=== PATIENT | male | born 2000 | race Two or more races ===

== ENCOUNTER 2024-01-24 10:50 | Outpatient (AMB) | payer OTHER, SELFPAY ==
--- NOTE | 2024-01-24 10:53 | A.OFFPC_ITS ---
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 Patient reports he has no concerns at this time. 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 Accompanied by: Self / Same As Patient Allergies No Known Allergies [No Known Allergies*] Allergy (Verified 01/24/24 11:05) Medication List - Last Reconciled 01/24/24 by ART Hamm No Known Home Meds Tobacco use date assessed: 01/24/24 HPI HPI Comments History of Present Illness Details 23-year-old male with MDD, Gender Identi ty disorder Surgical history: appendectomy 2023 Reports no sig family hx Health Maintenance: Dentist- needs info > given today Eyes - denies any issues Declines vaccines today as he is not sure if he got them in [place] Specialists: None Here today new patient for a CPE Wants to transition from Male and Female; states moved here from [place] 3 months ago. Was not able to have this done in [place] as they have an age restriction of 21. [facility] Medical History (Updated 01/24/24 @ 11:32 by ART Hamm) Appendicitis Surgical History (Updated 01/24/24 @ 11:06 by Adrianna Meyer CMA) History of appendectomy Family History (Updated 01/24/24 @ 11:09 by Adrianna Meyer CMA) Maternal Grandmother Diabetes Hypertension Social History (Updated 01/24/24 @ 11:05 by Adrianna Meyer CMA) Household Members: Family Housing: Apartment Alcohol intake: current Alcohol intake frequency: holidays/special occasions only Patient Tobacco Use Status: Never used Tobacco e-Cigarette/Vaping Use: Never Used Substance Use Type: Marijuana service: No Sexual orientation: Unable to collect Gender identity: Unable to collect Cognitive needs: No Hearing needs: No Vision needs: No Questionnaire PHQ-9 Over the last 2 weeks, how often have you been bothered by any of the following problems? 1. Little interest or pleasure in doing things: not at all 2. Feeling down, depressed, or hopeless: not at all 3. Trouble falling or staying asleep, or sleeping too much: not at all 4. Feeling tired or having little energy: not at all 5. Poor appetite or overeating: not at all 6. Feeling bad about yourself - or that you are a failure or have let yourself or your family down: not at all 7. Trouble concentrating on things, such as reading the newspaper or watching television: not at all 8. Moving or speaking so slowly that other people could have noticed. Or the opposite - being so fidgety or restless that you have been moving around a lot more than usual: not at all 9. Thoughts that you would be better off or of hurting yourself in some way: not at all Total score: 0 Depression Screening Interpretation: Negative Depression Screening Done: Yes 20670 - PHQ-9 Billing: Yes Source: Developed by Drs. Raghu Doyle, Kimberly Pacheco, Kei Castellanos and colleagues, with an educational yanet from [employer]. Thrive Questionnaire Date Thrive assessed: 01/24/24 I am a: Patient What is your living situation today?: I have a steady place to live Within the past 12 months, did the food you bought not last and you didn't have the money to get more?: Never true Within the past 12 months, did you worry whether your food would run out before you got money to buy more?: Never true Do you have trouble paying for medicines?: No Do you have trouble getting transportation to medical appointments?: No Do you have trouble paying your heating and electricity bill?: No Do you have trouble taking care of your child, family member or friend?: No Do you have trouble with day-to-day activities such as bathing, preparing meals, shopping, managing finances, etc.?: No Are you currently unemployed and looking for a job?: No Are you interested in more education?: No Please select the resources that you would like help with: None Currently or been in a relationship where the following occur: no concerns reported THRIVE Score: 0 AUDIT C Alcohol Use Questionnaire (AUDIT-C) 1. How often do you have a drink containing alcohol?: Monthly or less 2. How many drinks containing alcohol do you have on a typical day when you are drinking?: 1 or 2 3. How often do you have six or more drinks on one occasion?: Never Total Score: 1 Score Reviewed/Action Taken: Yes MANFRED-7 AMB Questionnaire MANFRED-7 Date MANFRED - 7 assessed: 01/24/24 Feeling nervous, anxious, or on edge: 0 = Not at all Not being able to stop or control worryin = Not at all Worrying too much about different things: 0 = Not at all Trouble relaxin = Not at all Being so restless that it is hard to sit still: 0 = Not at all Becoming easily annoyed or irritable: 0 = Not at all Feeling afraid as if something awful might happen: 0 = Not at all Total MANFRED-7 score (0-4 normal; 5-9 mild; 10-14 moderate; 15-21 severe): 0 Source: Developed by Drs. Rgahu Doyle, Kimberly Pacheco, Kei Castellanos and colleagues, with an educational yanet from [employer]. MANFRED-7 Assessment Billing MANFRED-7 Assessment Tool: MANFRED-7 Assessment 89001 Review of Systems Const Details: Constitutional: Denies fever. Skin: Denies rash. Eye: Denies eye pain. ENMT: Denies sore throat and nasal congestion. Respiratory: Denies shortness of breath and cough. Gastrointestinal: Denies nausea, vomiting or abdominal pain. Cardiovascular: Denies chest pain and syncope. Genitourinary: Denies dysuria. Musculoskeletal: Denies back pain and extremity pain. Neurologic: Denies headaches, confusion, and weakness. Psychiatric: Denies suicidal thoughts and substance abuse. Allergy/ Immunologic: Denies impaired immunity. Physical exam (Primary Care) Vital Signs: Last Vital Signs Temp 99.3 F 01/24/24 10:57 Pulse 69 01/24/24 10:57 Resp 13 01/24/24 10:57 BP 122/67 01/24/24 10:57 Pulse Ox 98 01/24/24 10:57 Oxygen Delivery Method Room Air 01/24/24 10:57 BMI result Body Mass Index 24.7 Tobacco/Smoking Status: Tobacco use Status Tobacco use date assessed 01/24/24 01/24/24 11:05 Patient Tobacco Use Status Never used Tobacco 01/24/24 11:05 e-Cigarette/Vaping Use Never Used 01/24/24 11:05 PHQ-9: PHQ-9 Score PHQ-9: Total score 0 01/24/24 11:07 Depression Screening Interpretation: Negative Thrive Assessment: Date of Thrive Assessment Date Thrive assessed 01/24/24 01/24/24 11:07 Currently or been in a relationship where the following occur: no concerns reported Advance Care Planning discussion: Exists, not on file Date of discussion: 01/24/24 Who was present: self Forms completed: Health Care Proxy Const Other: General: Well developed, well nourished, in no acute distress. Appears stated age. Head: Normocephalic, atraumatic. Eyes: Pupils are equal, round and reactive to light and accommodation. Conjunctivae are clear. Vision grossly normal. Ears: TMs clear AU, EACS WNL Nose: Patent, without discharge. Mouth: There are no ulcers or lesions noted. No inflammation, no post nasal drip, no plaques nor exudates. Neck: Supple, no adenopathy or thyromegaly. Lungs: Clear to auscultation bilaterally. No rales, rhonchi or wheeze noted. Good air flow in all mancini. Heart: Regular rate and rhythm. No murmurs, click, rubs or gallops are noted. Abdomen: Bowel sounds present in all quadrants. The abdomen is soft, nontender, with no masses or organomegaly noted. No hernias are noted. Musculoskeletal: Joints are nontender, without swelling, redness, or effusions. Range of motion is observed to be normal. Pulses: Peripheral pulses are equal and palpable bilaterally. Extremities: No clubbing, cyanosis nor edema is noted. Neurologic: Gait and station normal. Cranial Nerves 2-12 intact. Motor strength grossly symmetrical and intact. No sensory loss. Balance normal. Skin: No rashes, ulcers, or lesions noted. Turgor is good. Skin color is good. Hair and nails are without abnormalities. Psych: Normal eye contact, affect and mood appropriate, and normal interactions. Patient is alert and appropriate to context. Assessment and Plan Assessment & Plan (1) Routine physical examination: Code(s): Z00.00 - Encounter for general adult medical examination without abnormal findings (2) MDD (major depressive disorder), recurrent episode: Comment: in remission, PHQ 0. Not on meds Referred to counseling Code(s): F33.9 - Major depressive disorder, recurrent, unspecified Qualifiers: Major depression episode severity: mild Qualified Code(s): F33.0 - Major depressive disorder, recurrent, mild (3) Laboratory exam ordered as part of routine general medical examination: Code(s): Z00.00 - Encounter for general adult medical examination without abnormal findings (4) Gender identity disorder, unspecified: Comment: Wishes to undergo transition from male to female. Referred to counseling. Referral to Psychiatry from there if appropriate. Then referral to endocrinology or the like to help with this. Code(s): F64.9 - Gender identity disorder, unspecified Orders: Orders Lipid Panel Today Z00.00 - Encounter for general adult medical examination without abnormal findings Vitamin D 1,25 dihydroxy Today Z00.00 - Encounter for general adult medical examination without abnormal findings Hemoglobin A1c Today Z00.00 - Encounter for general adult medical examination without abnormal findings Microalbumin, Random (w Creat) Today Z00.00 - Encounter for general adult medical examination without abnormal findings TSH reflex Free T4 Today Z00.00 - Encounter for general adult medical examination without abnormal findings Referrals Counseling Referral F33.9 - Major depressive disorder, recurrent, unspecified, F64.9 - Gender identity disorder, unspecified Patient Instructions: RTO 1 year for CPE, sooner as needed Health screenings for men You should visit your health care provider regularly, even if you feel healthy. The purpose of these visits is to: Screen for medical issues Assess your risk for future medical problems Encourage a healthy lifestyle Update vaccinations and other preventive care services Help you get to know your provider in case of an illness Information Even if you feel fine, you should still see your provider for regular checkups. These visits can help you avoid problems in the future. For example, the only way to find out if you have high blood pressure is to have it checked regularly. High blood sugar and high cholesterol level also may not have any symptoms in the early stages. Simple blood tests can check for these conditions. There are specific times when you should see your provider or receive specific health screenings. The [place] Preventive Services Task Force publishes a list of recommended screenings. Below are screening guidelines for men ages 40 to 64. BLOOD PRESSURE SCREENING Have your blood pressure checked at least once every year. Watch for blood pressure screenings in your area. Ask your provider if you can stop in to have your blood pressure checked. Ask your provider if you need your blood pressure checked more often if: You have diabetes, heart disease, kidney problems, or are overweight or have certain other health conditions You have a first-degree relative with high blood pressure You are Black Your blood pressure top number is from 120 to 129 mm Hg, or the bottom number is from 70 to 79 mm Hg If the top number is 130 mm Hg or greater or the bottom number is 80 mm Hg or greater, this is considered stage 1 hypertension. Schedule an appointment with your provider to learn how you can lower your blood pressure. Effects of age on blood pressure CHOLESTEROL SCREENING Cholesterol screening should begin at age 35 for men with no known risk factors for coronary heart disease. Repeat cholesterol screening should take place: Every 5 years for men with normal cholesterol levels More often if changes occur in lifestyle (including weight gain and diet) More often if you have diabetes, heart disease, kidney problems, or certain other conditions COLORECTAL CANCER SCREENING If you are under age 45, talk to your provider about getting screened. You may need to be screened if you have a strong family history of colon cancer or polyps. Screening may also be considered if you have risk factors such as a history of inflammatory bowel disease or polyps. If you are age 45 to 75, you should be screened for colorectal cancer. There are several screening tests available: A stool-based fecal occult blood (gFOBT) or fecal immunochemical test (FIT) every year A stool sDNA test every 1 to 3 years Flexible sigmoidoscopy every 5 years or every 10 years with stool testing FIT done every year CT colonography (virtual colonoscopy) every 5 years Colonoscopy every 10 years You may need a colonoscopy more often if you have risk factors for colorectal cancer, such as: Ulcerative colitis A personal or family history of colorectal cancer A history of growths in your colon called adenomatous polyps DENTAL EXAM Go to the dentist once or twice every year for an exam and cleaning. Your dentist will evaluate if you have a need for more frequent visits. DIABETES SCREENING All adults who do not have risk factors for diabetes should be screened starting at age 35 and repeated every 3 years. If you have other risk factors for diabetes, such as a first degree relative with diabetes, overweight or obesity, high blood pressure, prediabetes, or a history of heart disease, you may be tested more often. If you are overweight and have other risk factors, such as high blood pressure and are planning to become , screening is recommended. EYE EXAM Have an eye exam every 2 to 4 years ages 40 to 54 and every 1 to 3 years ages 55 to 64. Your provider may recommend more frequent eye exams if you have vision problems or glaucoma risk. Have an eye exam that includes an examination of your retina (back of your eye) at least every year if you have diabetes. IMMUNIZATIONS Commonly needed vaccines include: Flu shot: get one every year COVID-19 vaccine: ask your provider what is best for you Tetanus-diphtheria and acellular pertussis (Tdap) vaccine: have as one of your tetanus-diphtheria vaccines if you did not receive it as an adolescent Tetanus-diphtheria: have a booster (or Tdap) every 10 years Varicella vaccine: receive 2 doses if you never had chickenpox or the varicella vaccine and were born in 1979 or after Hepatitis B vaccine: receive 2, 3, or 4 doses, depending on your exact circumstances, if you did not receive these as a child or adolescent, until age 59 Shingles (herpes zoster) vaccine: at or after age 50 Ask your provider if you should receive other immunizations, especially if you have certain medical conditions, such as diabetes or are at increased risk for some diseases such as pneumonia. INFECTIOUS DISEASE SCREENING Screening for hepatitis C: all adults ages 18 to 79 should get a one-time test for hepatitis C. Screening for human immunodeficiency virus (HIV): all people ages 15 to 65 should get a one-time test for HIV. Depending on your lifestyle and medical history, you may need to be screened for infections such as syphilis, chlamydia, and other infections. LUNG CANCER SCREENING You should have an annual screening for lung cancer with low-dose computed tomography (LDCT) if: You are age 50 to 80 years AND You have a 20 pack-year smoking history AND You currently smoke or have quit within the past 15 years OSTEOPOROSIS SCREENING If you are age 50 to 64 and have risk factors for osteoporosis, you should discuss screening with your provider. Risk factors can include long-term steroid use, low body weight, smoking, heavy alcohol use, having a fracture after age 50, or a family history of hip fracture or osteoporosis. Osteoporosis PHYSICAL EXAM All adults should visit their provider from time to time, even if they are healthy. The purpose of these visits is to: Screen for diseases Assess risk of future medical problems Encourage a healthy lifestyle Update vaccinations and other preventive care services Maintain a relationship with a provider in case of an illness Your height, weight, and body mass index (BMI) should be checked at every exam. During your exam, your provider may ask you about: Depression and anxiety Diet and exercise Alcohol and tobacco use Safety, such as use of seat belts and smoke detectors Your medicines and risk for interactions PROSTATE CANCER SCREENING If you're 55 through 69 years old, before having the test, talk to your provider about the pros and cons of having a PSA test. Ask about: Whether screening decreases your chance of dying from prostate cancer. Whether there is any harm from prostate cancer screening, such as side effects from testing or overtreatment of cancer when discovered. Whether you have a higher risk of prostate cancer than others. If you are age 55 or younger, screening is not generally recommended. You should talk with your provider about if you have a higher risk for prostate cancer. Risk factors include: Having a family history of prostate cancer (especially a brother or father) Being If you choose to be tested, the PSA blood test is repeated over time (yearly or less often), though the best frequency is not known. Prostate examinations are no longer routinely done on men with no symptoms. Prostate cancer SKIN EXAM Your provider may check your skin for signs of skin cancer, especially if you're at high risk. People at high risk include those who have had skin cancer before, have close relatives with skin cancer, or have a weakened immune system. TESTICULAR EXAM The [place] Preventive Services Task Force (USPSTF) now recommends against performing testicular self-exams. Doing testicular self-exams has been shown to have little to no benefit. Review Flu Vaccine not done: patient reason Declined TDap/Td: 01/24/24 Coding Level of Care Code Est Pt Prev Care 18-39y(28953) Diagnoses Routine physical examination Z00.00 Mild episode of recurrent major depressive disorder F33.0 Major depression episode severity: mild Laboratory exam ordered as part of routine general medical examination Z00.00 Gender identity disorder, unspecified F64.9 Additional Codes MANFRED-7 Assessment Billing - MANFRED-7 Assessment Tool: MANFRED-7 Assessment 24117 ([id number]) Vital Signs *Quality* - Advance Care Planning discussion: Exists, not on file ([id number])
[2024-01-24 10:57] VITALS: BP 122/67; PULSE 69; RESP 13; TEMP 37.4; O2SAT 98; BMI 24.7
== END 2024-01-24 11:42 | disposition home or self-care (01) ==
PROVIDERS: PCP Nurse Practitioner Family; Visit Provider Nurse Practitioner Family
DX: Z00.00 Encounter for general adult medical examination without abnormal findings (principal); F33.0 Major depressive disorder, recurrent, mild; F64.9 Gender identity disorder, unspecified
CPT/HCPCS: 1123F; 99395

== ENCOUNTER 2024-01-24 11:30 | Outpatient (REF) | payer OTHER, SELFPAY ==
[2024-01-24 14:55] LABS: Estimated Average Glucose 111 mg/dL; Hemoglobin A1c % 5.5 % (<6.0)
[2024-01-24 15:15] LABS: Microalbum/Creatinine Ratio Ur 4.9 ug/mg cr (<30)
[2024-01-24 17:34] LABS: Cholesterol 168 mg/dL (<200); HDL Cholesterol 39 mg/dL (>40); LDL Cholesterol Calculated 116 mg/dL (<100); Triglycerides 68 mg/dL (<150)
[2024-01-24 17:36] LABS: TSH reflex Free T4 2.59 uIU/mL (0.32-4.0)
[2024-01-29 09:19] LABS: VITAMIN D (1,25 OH) D3 41 pg/mL; Vit D (1,25-Dihydroxy) Total 41 pg/mL (18-72); Vitamin D (1,25 OH) D2 <8 pg/mL
== END 2024-01-24 11:31 | disposition home or self-care (01) ==
LOC: HO.WFDLDS 11:30
PROVIDERS: Visit Provider Nurse Practitioner Family
DX: Z00.00 Encounter for general adult medical examination without abnormal findings (principal)
CPT/HCPCS: 36415; 80061; 82043; 82570; 82652; 83036; 84443

== ENCOUNTER 2024-08-26 09:01 | Outpatient (REF) | payer OTHER, SELFPAY ==
--- NOTE | ~2024-08-26 | XR_ITS ---
EXAMINATION: XR ABDOMEN KUB CLINICAL INDICATION: Left lower quadrant pain. COMPARISON: None available. TECHNIQUE: AP view of the abdomen. FINDINGS: Nonobstructive bowel gas pattern. Moderate degree of colonic stool burden. No acute osseous findings. Visualized lung bases are clear. XR/XR KUB IMPRESSION: Nonobstructive bowel gas pattern. Moderate colonic stool burden. Electronically signed by: Anushka Low MD 08/26/2024 03:33 PM EST
[2024-08-26 13:05] LABS: Appearance Urine Turbid; Color Urine Dark Yellow; Glucose Urine UA Negative (Negative); Leukocyte Esterase Urine Negative (Negative); Nitrite Urine Negative (Negative); PH 5.5 (5.0-9.0); Specific Gravity - Urine 1.025 (1.005-1.025); Urine Blood Negative (Negative); Urine Ketones Trace mg/dL (Negative); Urine Protein Negative (Neg-Trace)
[2024-08-26 13:41] LABS: Alanine Aminotransferase 24 U/L (0-40); Albumin Level 4.8 g/dL (3.5-5.0); Alkaline Phosphatase 66 U/L (39-117); Aspartate Amino Transferase 27 U/L (5-37); Bilirubin Direct 0.2 mg/dL (0.0-0.5); Bilirubin Total 0.7 mg/dL (0.0-1.0); Total Protein 7.9 g/dL (6.5-8.0)
[2024-08-26 14:58] LABS: Monotest Negative (Negative)
[2024-08-27 08:22] LABS: Syphilis Screen Nonreactive (Nonreactive)
[2024-08-27 08:39] LABS: HIV AB/AG Nonreactive (Nonreactive); HIV Num 1 0.06 S/CO (0.00-0.99)
[2024-08-27 11:02] LABS: Herpes Simplex Type 2 IgG <0.90 index
== END 2024-08-26 09:02 | disposition home or self-care (01) ==
LOC: HO.HMGCX 09:01
PROVIDERS: PCP Nurse Practitioner Family; Visit Provider Nurse Practitioner Family
DX: R10.32 Left lower quadrant pain (principal); Z20.2 Contact with and (suspected) exposure to infections with a predominantly sexual mode of transmission; Z90.49 Acquired absence of other specified parts of digestive tract
CPT/HCPCS: 36415; 74018; 80076; 81003; 86308; 86695; 86696; 86780; 87389; 96127; 99212

== ENCOUNTER 2024-08-26 09:01 | Outpatient (AMB) | payer OTHER, SELFPAY ==
--- NOTE | 2024-08-26 09:05 | MHC.PC.OV ---
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 Required: No Allergies No Known Allergies [No Known Allergies*] Allergy (Verified 08/26/24 09:13) Medication List - Last Reconciled 08/26/24 by ART Hamm No Known Home Meds Tobacco use date assessed: 01/24/24 HPI HPI Comments History of Present Illness Details 24-year-old male with MDD, Gender Identity disorder (Wants to transition from Male and Female) Surgical history: appendectomy 2023 Reports no sig family hx Health Maintenance: Dentist- needs info > given today Eyes - denies any issues Declines vaccines today as he is not sure if he got them in [place] Specialists: None Here today with a couple concerns: Has chronic pain in LLQ s/p appendectomy, reports this has not improved since surgery. Pain is only present in the AM 5am-12pm. States can eat normally after this period Does not eat during this period as reports pain gets worse Moving bowels helps the pain Normal urination No vomiting Tried laxative w/o relief. Denies fever, chills, blood stools. Exposed to STDs. MSM. Would like STD testing. Denies active sx. Diet - states he was told to follow a specific diet s/p appendectomy but lost the directions. He also struggles w his weight. Wants to stay thin. Reports obesity in the past. Plan KUB and labs STD screening Clinical Pharmacy Coordinator referral I will fu with him once results are available. May require GI referral. No results as of close of note. This note is constructed using voice recognition software. While every effort has been made to ensure accuracy in fitness coach, still errors may have been included Sometimes, these errors may affect the content or meaning of the given sentence . Total time spent caring for the patient today was 30 minutes. This includes time spent before the visit reviewing the chart, time spent during the visit, and time spent after the visit on documentation [facility] Medical History (Updated 08/26/24 @ 09:27 by ART Hamm) Appendicitis Surgical History (Updated 08/26/24 @ 09:17 by Sherly Malone [facility]) History of appendectomy Family History (Updated 01/24/24 @ 11:09 by Adrianna Meyer [facility]) Maternal Grandmother Diabetes Hypertension Social History (Updated 01/24/24 @ 11:05 by Adrianna Meyer [facility]) Household Members: Family Housing: Apartment 75 years or older and lives alone: No Alcohol intake: current Alcohol intake frequency: holidays/special occasions only Patient Tobacco Use Status: Never used Tobacco e-Cigarette/Vaping Use: Never Used Substance Use Type: Marijuana service: No Sexual orientation: Unable to collect Gender identity: Unable to collect Cognitive needs: No Hearing needs: No Vision needs: No Questionnaire PHQ-9 Over the last 2 weeks, how often have you been bothered by any of the following problems? 1. Little interest or pleasure in doing things: not at all 2. Feeling down, depressed, or hopeless: not at all 3. Trouble falling or staying asleep, or sleeping too much: not at all 4. Feeling tired or having little energy: not at all 5. Poor appetite or overeating: not at all 6. Feeling bad about yourself - or that you are a failure or have let yourself or your family down: not at all 7. Trouble concentrating on things, such as reading the newspaper or watching television: not at all 8. Moving or speaking so slowly that other people could have noticed. Or the opposite - being so fidgety or restless that you have been moving around a lot more than usual: not at all 9. Thoughts that you would be better off or of hurting yourself in some way: not at all Total score: 0 09316 - PHQ-9 Billing: Yes Source: Developed by Drs. Raghu Doyle, Kimberly Pacheco, Kei Castellanos and colleagues, with an educational yanet from [employer]. Thrive Questionnaire Date Thrive assessed: 08/26/24 I am a: Patient What is your living situation today?: I have a steady place to live Within the past 12 months, did the food you bought not last and you didn't have the money to get more?: Never true Within the past 12 months, did you worry whether your food would run out before you got money to buy more?: Never true Do you have trouble paying for medicines?: No Do you have trouble getting transportation to medical appointments?: I choose not to answer this question Do you have trouble paying your heating and electricity bill?: No Do you have trouble taking care of your child, family member or friend?: No Do you have trouble with day-to-day activities such as bathing, preparing meals, shopping, managing finances, etc.?: No Are you currently unemployed and looking for a job?: No Are you interested in more education?: No Please select the resources that you would like help with: None Currently or been in a relationship where the following occur: No concerns reported THRIVE Score: 0 AUDIT C Alcohol Use Questionnaire (AUDIT-C) 1. How often do you have a drink containing alcohol?: Monthly or less 2. How many drinks containing alcohol do you have on a typical day when you are drinking?: 5 or 6 3. How often do you have six or more drinks on one occasion?: Less than monthly Total Score: 4 MANFRED-7 AMB Questionnaire MANFRED-7 Date MANFRED - 7 assessed: 08/26/24 Feeling nervous, anxious, or on edge: 0 = Not at all Not being able to stop or control worryin = Not at all Worrying too much about different things: 0 = Not at all Trouble relaxin = Several days Being so restless that it is hard to sit still: 0 = Not at all Becoming easily annoyed or irritable: 0 = Not at all Feeling afraid as if something awful might happen: 0 = Not at all Total MANFRED-7 score (0-4 normal; 5-9 mild; 10-14 moderate; 15-21 severe): 1 Source: Developed by Drs. Raghu Doyle, Kimberly Pacheco, Kei Castellanos and colleagues, with an educational yanet from [employer]. MANFRED-7 Assessment Billing MANFRED-7 Assessment Tool: MANFRED-7 Assessment 71382 Physical exam (Primary Care) Vital Signs: Last Vital Signs Pulse 66 08/26/24 09:07 Resp 13 08/26/24 09:07 BP 125/67 08/26/24 09:07 Pulse Ox 100 08/26/24 09:07 Oxygen Delivery Method Room Air 08/26/24 09:07 BMI result Body Mass Index 23.1 Tobacco/Smoking Status: Tobacco use Status Tobacco use date assessed 01/24/24 08/26/24 09:09 Patient Tobacco Use Status Never used Tobacco 08/26/24 09:09 e-Cigarette/Vaping Use Never Used 08/26/24 09:09 PHQ-9: PHQ-9 Score PHQ-9: Total score 0 08/26/24 09:14 Thrive Assessment: Date of Thrive Assessment Date Thrive assessed 08/26/24 08/26/24 09:09 Currently or been in a relationship where the following occur: No concerns reported Coding Level of Care Code Est Pt Level 4 (77581) Complex EM visit Add On G2211 Diagnoses LLQ abdominal pain R10.32 History of appendectomy Z90.49 Exposure to STD Z20.2 Dietary counseling Z71.3 Additional Codes MANFRED-7 Assessment Billing - MANFRED-7 Assessment Tool: MANFRED-7 Assessment 45706 ([id number]) PHQ-9 - 85838 - PHQ-9 Billing: Yes ([id number]) Assessment & Plan Assessment & Plan (1) LLQ abdominal pain: Code(s): R10.32 - Left lower quadrant pain Category: Medical Plan: . (2) History of appendectomy: Code(s): Z90.49 - Acquired absence of other specified parts of digestive tract Category: Surgical Plan: . (3) Exposure to STD: Code(s): Z20.2 - Contact with and (suspected) exposure to infections with a predominantly sexual mode of transmission Category: Medical Plan: . (4) Dietary counseling: Code(s): Z71.3 - Dietary counseling and surveillance Category: Medical Plan: . Plan . Orders: Orders Liver Panel Today R10.32 - Left lower quadrant pain, Z90.49 - Acquired absence of other specified parts of digestive tract H Pylori Breath Test Today R10.32 - Left lower quadrant pain, Z90.49 - Acquired absence of other specified parts of digestive tract Syphilis Screen Today Z11.3 - Encounter for screening for infections with a predominantly sexual mode of transmission Herpes Simplex Virus Ab IgG Today Z11.3 - Encounter for screening for infections with a predominantly sexual mode of transmission UA CC w/rflx Micro + Cult Today Z11.3 - Encounter for screening for infections with a predominantly sexual mode of transmission XR KUB Today R10.32 - Left lower quadrant pain, Z90.49 - Acquired absence of other specified parts of digestive tract Monotest Today R10.32 - Left lower quadrant pain, Z90.49 - Acquired absence of other specified parts of digestive tract HIV Ab/Ag Today Z11.3 - Encounter for screening for infections with a predominantly sexual mode of transmission Referrals Clinical Pharmacy Coordinator Nutrition Referral R10.32 - Left lower quadrant pain, Z90.49 - Acquired absence of other specified parts of digestive tract
[2024-08-26 09:07] VITALS: BP 125/67; PULSE 66; RESP 13; O2SAT 100; BMI 23.1
== END 2024-08-26 09:23 | disposition home or self-care (01) ==
PROVIDERS: PCP Nurse Practitioner Family; Visit Provider Nurse Practitioner Family
DX: R10.32 Left lower quadrant pain (principal); Z90.49 Acquired absence of other specified parts of digestive tract; Z20.2 Contact with and (suspected) exposure to infections with a predominantly sexual mode of transmission; Z71.3 Dietary counseling and surveillance

== ENCOUNTER 2024-09-10 09:29 | Outpatient (AMB) | payer OTHER, SELFPAY ==
[2024-09-10 09:48] VITALS: BMI 22.9
--- NOTE | 2024-09-10 09:48 | MHC.AMNUTRGE ---
VS Expanded 09/10/24 09:48 09/17/24 13:35 Height 5 ft 7 in 5 ft 7 in Weight 145 lb 15.136 oz 146 lb BMI 22.9 22.9 Intake Visit Reasons: LLQ Pain/VM NOT SET UP Allergies No Known Allergies [No Known Allergies*] Allergy (Verified 08/26/24 09:13) Nutrition Presentation Details: Pt presents for MNT for healthy eating concepts Pt has hx of appendecotmy and c/o chroni LLquadrant pain denies diarrhea/constipation, may have a bowel movement every 2 days , hard stools Meal pattern: reports no meal routine , reports eating out majority of the time fries/burger, soda the majority of the time food frequency fruits: not including, has fruit juices veg:starchy veg mostly (potatoes) dairy: cheese mainly fish:not including starches> 25/day fried foods:daily etoh/smoking-- BS Monitoring Most Recent Diabetes Results: Microalb/Creat Ratio 4.9 ug/mg cr (<30) 01/24/24 Cholesterol 168 mg/dL (<200) 01/24/24 HDL Cholesterol 39 mg/dL (>40) L 01/24/24 Triglycerides 68 mg/dL (<150) 01/24/24 Creatinine 0.84 MG/DL (0.5-1.4) 05/18/19 Blood Urea Nitrogen 4 MG/DL (9-16) L 05/18/19 Sodium 143 MMOL/L (135-145) 05/18/19 Potassium 4.1 MMOL/L (3.3-5.1) 05/18/19 Chloride 106 MMOL/L (96-108) 05/18/19 Calcium 10.0 MG/DL (8.4-10.2) 05/18/19 AST 27 U/L (5-37) 08/26/24 ALT 24 U/L (0-40) 08/26/24 Total Protein 7.9 g/dL (6.5-8.0) 08/26/24 Albumin 4.8 g/dL (3.5-5.0) 08/26/24 WIV-Rimtzrb-Ju.Jeor Equation Height: 5 ft 7 in Weight: 146 lb Resting Metabolic Rate: 1621.97 Calculated Activity Level: Mild Activity Calories Needed to Maintain Weight: 2230.21 Diagnosis Nutrition problem #1: food nutri know defi As related to (etiology) #1: diagnosis As evidenced by (sign/symptom) #1: knowledge deficit of diet [facility] Medical History (Updated 08/28/24 @ 07:10 [facility] Appendicitis Surgical History (Updated 08/26/24 @ 09:17 by ART Hamm) History of appendectomy Family History (Updated 01/24/24 @ 11:09 by Adrianna Meyer [facility]) Maternal Grandmother Diabetes Hypertension Social History (Updated 01/24/24 @ 11:05 by Adrianna Meyer CLINICAL CARE MANAGER) Household Members: Family Housing: Apartment 75 years or older and lives alone: No Alcohol intake: current Alcohol intake frequency: holidays/special occasions only Patient Tobacco Use Status: Never used Tobacco e-Cigarette/Vaping Use: Never Used Substance Use Type: Marijuana service: No Sexual orientation: Unable to collect Gender identity: Unable to collect Cognitive needs: No Hearing needs: No Vision needs: No Assessment & Plan Assessment & Plan (1) Dietary counseling: Code(s): Z71.3 - Dietary counseling and surveillance Category: Medical Plan: Wt: 66.6 Kg ( 09/17/24 ) Est kcal needs as per MSJ: 2100 (40% carb, 30% protein/fat) Est fluid needs as per 25-30 ml/d: 2000 Est prot per day as per 1 g/kg bw: 67 Recommend fiber intake : 8-10 g per day and gradually increase to 25-28 g per day for women and 35-38 g for men or as tolerated Recommend sodium intake per day : less than 2300 mg Educated patient on: ( R = reviewed V = verbalizes understanding N/R = needs review N/A = not applicable Food sources of carbohydrate, adequate serving sizes and its role in various health conditions: R V N/R Differences between complex carbohydrates a simple carbohydrates, role of fiber in diet: R Lean protein sources of foods: R V NR Differences between types of fats and role in diet (mono on saturated fat fatty acids, saturated fatty acids, trans fats): R V N/R Food sources of sodium in salt and healthy modifications for heart health in kidney health: R V R/V Vitamins and minerals: R V N/R Healthy plate method concept: R Physical activity: Benefits a precaution: R V N/R Patient Instructions: Work on reducing fried food consumption Include fiber rich foods in your diet incorporate fruit at least 2 a day (fruit of choice, fresh, canned in its own juice , frozen) Have oatmeal with milk//nuts twice a week as a meal see list of fiber rich foods and meal ideas high in fiber Make sure to drink water with meals /snacks and increase water as you increase in fiber intake Coding Level of Care Code Nutr Indiv Intake (79530) Diagnoses Dietary counseling Z71.3 Time Spent (min) 30
[2024-09-17 13:35] VITALS: BMI 22.9
== END 2024-09-10 10:19 | disposition home or self-care (01) ==
PROVIDERS: PCP Nurse Practitioner Family; Visit Provider Dietitian, Registered
DX: Z71.3 Dietary counseling and surveillance (principal)

== ENCOUNTER → 2024-09-10 09:29 | Outpatient (BNVA) | payer OTHER, SELFPAY | PROVIDERS: PCP Nurse Practitioner Family; Visit Provider Dietitian, Registered | DX: R10.32 Left lower quadrant pain (principal); Z71.3 Dietary counseling and surveillance; Z90.49 Acquired absence of other specified parts of digestive tract | CPT/HCPCS: 97802 ==

== ENCOUNTER 2024-11-05 09:06 | Outpatient (AMB) | payer OTHER, SELFPAY ==
[2024-11-05 09:18] VITALS: BMI 23.9
--- NOTE | 2024-11-05 09:18 | A.OFFVIS_ITS ---
VS Expanded 11/05/24 09:18 Height 5 ft 7 in Weight 152 lb 5.431 oz BMI 23.9 Intake Visit Reasons: appendicitis Allergies No Known Allergies [No Known Allergies*] Allergy (Verified 08/26/24 09:13) Nutrition Presentation Details: Pt presents for MNT f/u Pt reports working on meal planning, including fiber rich foods Pt reports feeling comfortable, no questions or concerns expressed at this time. denies constipation /diarrhea/vomiting food frequency fruits:daily 2-3 servings dairy:choosing fairlife, low lactose food options fiber rich foods: reports including fruits, whole grains, legumes , trying variety of foods Beverages: water , juices, sometimes sodas etoh:denies BS Monitoring Most Recent Diabetes Results: Microalb/Creat Ratio 4.9 ug/mg cr (<30) 01/24/24 Cholesterol 168 mg/dL (<200) 01/24/24 HDL Cholesterol 39 mg/dL (>40) L 01/24/24 Triglycerides 68 mg/dL (<150) 01/24/24 Creatinine 0.84 MG/DL (0.5-1.4) 05/18/19 Blood Urea Nitrogen 4 MG/DL (9-16) L 05/18/19 Sodium 143 MMOL/L (135-145) 05/18/19 Potassium 4.1 MMOL/L (3.3-5.1) 05/18/19 Chloride 106 MMOL/L (96-108) 05/18/19 Calcium 10.0 MG/DL (8.4-10.2) 05/18/19 AST 27 U/L (5-37) 08/26/24 ALT 24 U/L (0-40) 08/26/24 Total Protein 7.9 g/dL (6.5-8.0) 08/26/24 Albumin 4.8 g/dL (3.5-5.0) 08/26/24 [facility] Medical History (Updated 08/28/24 @ 07:10 by ART Hamm) Appendicitis Surgical History (Updated 08/26/24 @ 09:17 by ART Hamm) History of appendectomy Family History (Updated 01/24/24 @ 11:09 by Adrianna Meyer [facility]) Maternal Grandmother Diabetes Hypertension Social History (Updated 01/24/24 @ 11:05 by Adrianna Meyer CMA) Household Members: Family Housing: Apartment 75 years or older and lives alone: No Alcohol intake: current Alcohol intake frequency: holidays/special occasions only Patient Tobacco Use Status: Never used Tobacco e-Cigarette/Vaping Use: Never Used Substance Use Type: Marijuana service: No Sexual orientation: Unable to collect Gender identity: Unable to collect Cognitive needs: No Hearing needs: No Vision needs: No Assessment & Plan Assessment & Plan (1) Dietary counseling: Code(s): Z71.3 - Dietary counseling and surveillance Category: Medical Plan: Wt: 66.6 Kg ( 09/17/24 ), 69 kg (11/09) Est kcal needs as per MSJ: 2100 (40% carb, 30% protein/fat) Est fluid needs as per 25-30 ml/d: 2000 Est prot per day as per 1 g/kg bw: 67 Recommend fiber intake : 8-10 g per day and gradually increase to 25-28 g per day for women and 35-38 g for men or as tolerated Recommend sodium intake per day : less than 2300 mg Educated patient on: ( R = reviewed V = verbalizes understanding N/R = needs review N/A = not applicable * Food sources of carbohydrate, adequate serving sizes and its role in various health conditions: R V N/R * Differences between complex carbohydrates a simple carbohydrates, role of fiber in diet: R * Lean protein sources of foods: R V NR * Differences between types of fats and role in diet (mono on saturated fat fatt y acids, saturated fatty acids, trans fats): R V N/R * Food sources of sodium in salt and healthy modifications for heart health in kidney health: R V R/V * Vitamins and minerals: R V N/R * Healthy plate method concept: R * Physical activity: Benefits a precaution: R V N/R * Patient Instructions: Continue working on choosing low fat food option, Include foods rich in fiber following healthy plate method keep hydrated Coding Level of Care Code Nutr Indiv Subseq (20799) Diagnoses Dietary counseling Z71.3 Time Spent (min) 30
== END 2024-11-05 09:39 | disposition home or self-care (01) ==
PROVIDERS: PCP Nurse Practitioner Family; Visit Provider Dietitian, Registered
DX: Z71.3 Dietary counseling and surveillance (principal)

== ENCOUNTER → 2024-11-05 09:06 | Outpatient (BNVA) | payer OTHER, SELFPAY | PROVIDERS: PCP Nurse Practitioner Family; Visit Provider Dietitian, Registered | DX: Z87.19 Personal history of other diseases of the digestive system (principal); Z71.3 Dietary counseling and surveillance | CPT/HCPCS: 97803 ==

== ENCOUNTER 2024-11-18 12:28 | Outpatient (AMB) | payer OTHER, SELFPAY ==
--- NOTE | 2024-11-18 12:31 | MHC.PC.OV ---
Vital Signs 11/18/24 12:35 Height 5 ft 7 in Weight 152 lb BMI 23.8 BP 98/68 Blood Pressure Location Lt brachial Position Sitting Respiration 12 Pulse 78 Pulse Source Pulse Oximeter Temp 96.8 F Temp Source Oral Pulse Oximetry (%) 98 Oxygen Delivery Method Room Air Intake Visit Reasons: Lab Results Review Intake Note: follow up to review labs Radio Host Required: No Allergies No Known Allergies [No Known Allergies*] Allergy (Verified 11/18/24 12:51) Medication List - Last Reconciled 11/18/24 by NINFA Hamm No Known Home Meds Tobacco use date assessed: 01/24/24 HPI HPI Comments History of Present Illness Details 24-year-old male with MDD, Gender Identity disorder (Wants to transition from Male and Female),HSV 1 Surgical history: appendectomy 2023 Reports no sig family hx Health Maintenance: Dentist- still needs to establish care did not follow up the listed provide last time Eyes - denies any issues Declines vaccines today as he is not sure if he got them in [place] Specialists: [facility] [employer] [facility] - referred but does not want to go. The patient is a 24-year-old male presenting with concerns regarding newly observed lesions in the oral cavity and genital area. The patient has a history of Major Depressive Disorder, Gender Identity Disorder, and HSV-1. During the visit, the patient expressed confusion and concern about the positive HSV-1 status, particularly the absence of symptoms such as blisters or ulcers. The lesions on the oral mucosa and genital regions are asymptomatic?neither painful nor itchy?and noted to have been present for approximately one-2 week. The patient described these lesions as wart-like in appearance. The patient reports no new sexual partners and minimal sexual activity over the past two years, with only a single non-penetrative encounter five months ago. Previous immunization records are unavailable due to relocation from [place], and the patient is uncertain about HPV vaccination status. Prior referrals for counseling were made, but the patient opted not to pursue them at this time. His chronic abdominal pain status post appendectomy is now resolved. He is active with a hogshead hooper which he was found very helpful. Social History - Employment: The patient works in [employer], indicating a stable living situation. - Sexual activity: Limited sexual activity over the past two years; single non-penetrative encounter noted. - Nutrition: Engagement with a hogshead hooper noted; potential dietary changes are discussed. Results - PHQ-9 Score: 3 (Minimal Depression) - MANFRED-7 Score: 5 (Mild Anxiety) - AUDIT-C Score: 4 (Positive for potential alcohol use concerns) Discussion Notes During the visit, I addressed the patient's concerns about the oral and genital lesions, suspecting an HPV infection due to their appearance. I explained the commonality and nature of HPV, and potential for lesions to develop without sexual contact in recent years. I discussed the importance of referrals to an Ear, Nose, and Throat specialist for further examination of oral lesions and a urologist for genital lesions. I explained that these specialists may perform biopsies and could offer treatment options such as removal of lesions. I assured the patient of the non-emergent nature of these findings but emphasized the importance of follow-up with specialists. The role of vaccines against HPV was discussed, noting the preventive measures recommended in the [place]. Patient Instructions - Expect contact from referred specialists: Ear, Nose, and Throat (ENT) and Urology. - Attend scheduled follow-up visits with specialists for lesion evaluation and management. - Monitor for changes in the appearance or symptoms of lesions, and report any new symptoms immediately. Plan - Referral to Ear, Nose, and Throat specialist for assessment and potential treatment of oral cavity lesions. - Referral to Urology specialist for assessment and potential treatment of genital area lesions. - Follow-up in January for routine physical examination, unless condition changes earlier. Patient was informed and verbally consented to the use of an ambient scribe for clinic note documentation during this visit. Exam: awake alert NAD MMM No ulcers or lesions on tongue or pharynx, no ac adenopathy - see pic of oral mucosa RRR LS CTAB Abd soft nontender Mildly anxious, shy, pleasant and appropriate Total time spent caring for the patient today was 30 minutes. This includes time spent before the visit reviewing the chart, time spent during the visit, and time spent after the visit on documentation, reviewing laboratory results, diagnostic imaging, medications, performing a medically necessary evaluation, counseling on diagnoses, care coordination, ordering appropriate tests, ordering appropriate medications, review of tests performed by other providers, reporting test results with the patient, communication with other healthcare providers. [facility] Medical History (Updated 11/18/24 @ 17:48 by Sherly Malone, EXTRUDER OPERATOR HORIZONTAL[facility]LY [facility]) Appendicitis Surgical History (Updated 08/26/24 @ 09:17 by Sherly Malone [facility]) History of appendectomy Family History (Updated 01/24/24 @ 11:09 by Adrianna Meyer [facility]) Maternal Grandmother Diabetes Hypertension Social History (Updated 01/24/24 @ 11:05 by Adrianna Meyer [facility]) Household Members: Family Housing: Apartment 75 years or older and lives alone: No Alcohol intake: current Alcohol intake frequency: holidays/special occasions only Patient Tobacco Use Status: Never used Tobacco e-Cigarette/Vaping Use: Never Used Substance Use Type: Marijuana service: No Sexual orientation: Unable to collect Gender identity: Unable to collect Cognitive needs: No Hearing needs: No Vision needs: No Questionnaire PHQ-9 Over the last 2 weeks, how often have you been bothered by any of the following problems? 1. Little interest or pleasure in doing things: not at all 2. Feeling down, depressed, or hopeless: several days 3. Trouble falling or staying asleep, or sleeping too much: several days 4. Feeling tired or having little energy: not at all 5. Poor appetite or overeating: not at all 6. Feeling bad about yourself - or that you are a failure or have let yourself or your family down: several days 7. Trouble concentrating on things, such as reading the newspaper or watching television: not at all 8. Moving or speaking so slowly that other people could have noticed. Or the opposite - being so fidgety or restless that you have been moving around a lot more than usual: not at all 9. Thoughts that you would be better off or of hurting yourself in some way: not at all Total score: 3 Depression Screening Interpretation: Negative Depression Screening Done: Yes 24682 - PHQ-9 Billing: Yes Source: Developed by Drs. Raghu Doyle, Kimberly Pacheco, Kei Castellanos and colleagues, with an educational yanet from [employer]. Thrive Questionnaire Date Thrive assessed: 11/18/24 I am a: Patient What is your living situation today?: I have a steady place to live Within the past 12 months, did the food you bought not last and you didn't have the money to get more?: Never true Within the past 12 months, did you worry whether your food would run out before you got money to buy more?: Never true Do you have trouble paying for medicines?: No Do you have trouble getting transportation to medical appointments?: No Do you have trouble paying your heating and electricity bill?: No Do you have trouble taking care of your child, family member or friend?: No Do you have trouble with day-to-day activities such as bathing, preparing meals, shopping, managing finances, etc.?: No Are you currently unemployed and looking for a job?: No Are you interested in more education?: No Please select the resources that you would like help with: None Currently or been in a relationship where the following occur: No concerns reported THRIVE Score: 0 AUDIT C Alcohol Use Questionnaire (AUDIT-C) 1. How often do you have a drink containing alcohol?: Monthly or less 2. How many drinks containing alcohol do you have on a typical day when you are drinking?: 3 or 4 3. How often do you have six or more drinks on one occasion?: Monthly Total Score: 4 Score Reviewed/Action Taken: Yes MANFRED-7 AMB Questionnaire MANFRED-7 Date MANFRED - 7 assessed: 11/18/24 Feeling nervous, anxious, or on edge: 1 = Several days Not being able to stop or control worryin = Several days Worrying too much about different things: 1 = Several days Trouble relaxin = Several days Being so restless that it is hard to sit still: 0 = Not at all Becoming easily annoyed or irritable: 0 = Not at all Feeling afraid as if something awful might happen: 1 = Several days Total MANFRED-7 score (0-4 normal; 5-9 mild; 10-14 moderate; 15-21 severe): 5 Source: Developed by Drs. Raghu Doyle, Kimberly Pacheco, Kei Castellanos and colleagues, with an educational yanet from [employer]. MANFRED-7 Assessment Billing MANFRED-7 Assessment Tool: MANFRED-7 Assessment 94660 Physical exam (Primary Care) Vital Signs: Last Vital Signs Temp 96.8 F 11/18/24 12:35 Pulse 78 11/18/24 12:35 Resp 12 11/18/24 12:35 BP 98/68 11/18/24 12:35 Pulse Ox 98 11/18/24 12:35 Oxygen Delivery Method Room Air 11/18/24 12:35 BMI result Body Mass Index 23.8 Tobacco/Smoking Status: Tobacco use Status Tobacco use date assessed 01/24/24 11/18/24 12:32 Patient Tobacco Use Status Never used Tobacco 11/18/24 12:32 e-Cigarette/Vaping Use Never Used 11/18/24 12:32 PHQ-9: PHQ-9 Score PHQ-9: Total score 3 11/18/24 12:51 Depression Screening Interpretation: Negative Thrive Assessment: Date of Thrive Assessment Date Thrive assessed 11/18/24 11/18/24 12:32 Currently or been in a relationship where the following occur: No concerns reported Coding Level of Care Code Est Pt Level 4 (43667) Complex EM visit Add On G2211 Diagnoses Oral wart B07.9 Penile wart A63.0 Human herpes simplex virus type 1 (HSV-1) DNA detected B00.9 LLQ abdominal pain R10.32 Mild episode of recurrent major depressive disorder F33.0 Major depression episode severity: mild Gender identity disorder, unspecified F64.9 Additional Codes MANFRED-7 Assessment Billing - MANFRED-7 Assessment Tool: MANFRED-7 Assessment 05457 ([id number]) PHQ-9 - 43685 - PHQ-9 Billing: Yes ([id number]) Assessment & Plan Assessment & Plan (1) Oral wart: Code(s): B07.9 - Viral wart, unspecified Category: Medical (2) Penile wart: Code(s): A63.0 - Anogenital (venereal) warts Category: Medical (3) Human herpes simplex virus type 1 (HSV-1) DNA detected: Code(s): B00.9 - Herpesviral infection, unspecified Category: Medical (4) LLQ abdominal pain: Code(s): R10.32 - Left lower quadrant pain Category: Medical (5) MDD (major depressive disorder), recurrent episode: Comment: Not on meds Referred to counseling - does not want to go Code(s): F33.9 - Major depressive disorder, recurrent, unspecified Category: Medical Qualifiers: Major depression episode severity: mild Qualified Code(s): F33.0 - Major depressive disorder, recurrent, mild (6) Gender identity disorder, unspecified: Comment: Wishes to undergo transition from male to female. Referred to counseling but does not want to go . Referral to Psychiatry from there if appropriate. Then referral to endocrinology or the like to help with this. Code(s): F64.9 - Gender identity disorder, unspecified Category: Medical Plan . Orders: Referrals Ear/Nose/Throat Referral B07.9 - Viral wart, unspecified Urology Referral A63.0 - Anogenital (venereal) warts Patient Instructions: Patient Instructions - Expect contact from referred specialists: Ear, Nose, and Throat (ENT) and Urology. - Attend scheduled follow-up visits with specialists for lesion evaluation and management. - Monitor for changes in the appearance or symptoms of lesions, and report any new symptoms immediately.
[2024-11-18 12:35] VITALS: BP 98/68; PULSE 78; RESP 12; TEMP 36; O2SAT 98; BMI 23.8
== END 2024-11-18 13:09 | disposition home or self-care (01) ==
PROVIDERS: PCP Nurse Practitioner Family; Visit Provider Nurse Practitioner Family
DX: R10.32 Left lower quadrant pain (principal); B07.9 Viral wart, unspecified; F33.0 Major depressive disorder, recurrent, mild; A63.0 Anogenital (venereal) warts; B00.9 Herpesviral infection, unspecified; F64.9 Gender identity disorder, unspecified

== ENCOUNTER → 2024-11-18 12:28 | Outpatient (BNVA) | payer OTHER, SELFPAY | PROVIDERS: PCP Nurse Practitioner Family; Visit Provider Nurse Practitioner Family | DX: B07.9 Viral wart, unspecified (principal); A63.0 Anogenital (venereal) warts; B00.9 Herpesviral infection, unspecified; R10.32 Left lower quadrant pain; F33.0 Major depressive disorder, recurrent, mild; F64.9 Gender identity disorder, unspecified | CPT/HCPCS: 96127; 99212 ==

== ENCOUNTER 2025-01-08 17:05 | Inpatient (IN) | payer OTHER, SELFPAY ==
--- NOTE | ~2025-01-08 | XR_ITS ---
CLINICAL HISTORY: pain 2 view chest x-ray Comparison: None Findings: The lungs are clear. Normal size heart. No acute fracture. IMPRESSION: 1. No acute findings. This document has been electronically signed by: Shahla Condon MD on 01/08/2025 18:24:57
--- NOTE | 2025-01-08 17:08 | ECG_ITS ---
Test Reason : chest pain Blood Pressure : */* mmHG Vent. Rate : 71 BPM Atrial Rate : 71 BPM P-R Int : 122 ms QRS Dur : 96 ms QT Int : 362 ms P-R-T Axes : 41 67 25 degrees QTcB Int : 393 ms Normal sinus rhythm Normal ECG No previous ECGs available Referred By: Isrrael Alfaro Electronically Signed By: HITESH CARRERA MD
[2025-01-08 17:17] VITALS: BP 110/64; PULSE 71; RESP 18; TEMP 36.6; O2SAT 98; BMI 24.1
--- NOTE | 2025-01-08 17:17 | ED_ITS ---
HPI - General Adult General Chief complaint: Chest Pain Stated complaint: chest pain Time Seen by Provider: 01/08/25 17:29 Source: patient Mode of arrival: ambulatory Limitations: no limitations History of Present Illness ED Provider: WENDY WASHINGTON PA-C HPI narrative: 24 year old male with pmhx significant for MDD and gender identity disorder presents to the ED today for evaluation of chest pain x1 week. Pain has been intermittent over the last week, worsening this morning. Pain runs diffusely across his chest and occasionally down his right arm. It is not exertional, substernal or positional. Not relieve by rest. He has not trialed any OTC pain medications. He reports history of similar in the past. He has been diagnosed with anxiety however has never been on medication for this. His chest pain is typically accompanied by palpitations however he has not had any palpitations over the last week. States this feels different than his typical anxiety attack. He has been evaluated in the past for his chest pain with normal work ups. Denies recent travel or long car rides. Denies any recent upper respiratory symptoms. Denies fever, chills, headache, dizziness, vision changes, sob, wheezing, calf pain/swelling. Of note, while patient was being triaged, he admitted to RN and triage provider that he has occasional thoughts of self harm. He does not currently have a plan for how he would harm himself. He states he is open to speaking with someone from CARE team. He admits to previous thoughts of SI with attempts. His last SI attempt was in 2020. He does not wish to discuss how he attempted to end his life. He denies any access to guns at home. He denies //TH. Admits to consuming THC gummies. No illicit substance use. Denies smoking tobacco or vaping. Related Data Home Medications ?Medication ?Instructions ?Recorded ?Confirmed No Known Home Meds 01/24/24 11/18/24 Allergies Allergy/AdvReac Type Severity Reaction Status Date / Time No Known Allergies Allergy Verified 01/08/25 17:18 [No Known Allergies*] Review of Systems 2 Review of Systems: Constitutional: No fever, chills, fatigue, night sweats, weight changes ENT/Mouth: No ear pain, hearing loss, nasal congestion, sinus pain, rhinorrhea, sore throat Eyes: No eye pain, swelling, redness, vision changes, discharge Cardio: No SWENSON, orthopnea, peripheral edema, +chest pain Pulm: No SOB, cough, sputum, wheezing, dyspnea, hemoptysis GI: No nausea, vomiting, hematemesis, abdominal pain, diarrhea, constipation, hematochezia, melena : No irregular bleeding, dysuria, frequency, urgency, hesitancy, hematuria, flank pain, urinary flow changes, urinary incontinence or retention MSK: No back pain, neck pain, joint pain, myalgias Skin: No lesions, rashes Neuro: No weakness, numbness, paresthesias, LOC, dizziness, headache Psych: No anxiety/panic, depression, SI/HI, AH/VH All other systems reviewed and are negative. ON LICENSE OF [facility] Past Medical History Attestation statement: The following information was validated with the patient. Source: old records reviewed and nursing notes reviewed Medical History Appendicitis Surgical History History of appendectomy Family History Family History Maternal Grandmother Diabetes Hypertension Social History Social History Household Members: Family Housing: Apartment Alcohol intake: current Alcohol intake frequency: holidays/special occasions only Patient Tobacco Use Status: Never used Tobacco Smoked in Last 30 Days: No e-Cigarette/Vaping Use: Never Used Use of substances other than those prescribed or required for medical reasons: Yes Substance Use Type: Marijuana Substance Use Frequency: Occasionally Advance Directives: No Advance Directives Information Provided: No Do you have a plan to hurt others: No Plan service: No Sexual orientation: Unable to collect Gender identity: Unable to collect Cognitive needs: No Hearing needs: No Vision needs: No Physical Exam ED Vital Signs: Vital Signs - 24 hr 01/08/25 17:17 Temperature 98 F Pulse Rate 71 Respiratory Rate 18 Blood Pressure 110/64 Pulse Oximetry 98 Oxygen Delivery Method Room Air BMI result Body Mass Index 24.1 vital signs stable General: well appearing, in no acute distress. Skin: Warm, dry, intact. No rashes or lesions. Head: Normocephalic, atraumatic. EENT: Hearing is intact b/l. Conjunctiva clear. PERRLA. EOM intact. Moist mucous membranes.? Neck: Supple without LAD Cardiac: Chest wall symmetric. RRR. no jvd. Lungs: Normal respiratory effort without accessory muscle use. CTA bilaterally. No rales, rhonchi, or wheezes.? Abdomen: Soft, non-tender, non-distended. No rebound tenderness or guarding. Positive BS x4. Back: No midline spinous or paraspinal tenderness. No step off deformity. Ext: Upper and lower extremities atraumatic, without tenderness, deformity, swelling or erythema Neuro: AOx3. Normal speech. Ambulating with steady gait. Psych: Appropriate mood and affect. Responds appropriately to questions. Course Course Course Narrative: RME, this is a rapid medical exam performed by Brian Alfaro please refer to primary provider for complete H&P- 24-year-old male presents for evaluation of chest pain. He reports that the pain started about a week ago but worsened this morning. He endorses intermittent chest pain and palpitations described as my heart is running. he reports he has been worked up in the past for chest pain and was told that he has anxiety. during screening questions, the patient admitted that he does have occasional thoughts of self-harm. He is open to speaking to a counselor. Plan for medical clearance with EKG, labs, chest x- ray, and likely care team consult Reevaluation(s) Reevaluation #1: 1823 -- cbc without leukocytosis or left shift. no anemia, h&h stable. chemistry without acute electrolyte abnormality requiring intervention. no cee. normal liver function. random glucose 94. tsh wnl. troponin undetectable. ekg showing NSR with a rate of 71 bpm, no acute ischemic changes or st elevations. > cxr pending > CARE team at bedside to speak with patient 1926 -- chest x-ray does not show infiltrate or consolidation to suggest pneumonia. Patient was medically cleared at this time. CARE team evaluated patient - cannot confirm safe contact at home. Patient will likely be inpatient bed search. Patient placed in the behavioral pod at this time pending placement. Physician observation initiated. Medications Administered Discontinued Medications Generic Name Dose Route Start Last Admin Trade Name Freq PRN Reason Stop Dose Admin Ibuprofen 600 mg 01/08/25 18:16 01/08/25 18:40 Ibuprofen 600 Mg Tablet PO 01/08/25 18:17 600 mg ONCE ONE Administration Medical Decision Making Medical Decision Making [facility] Narrative: This 24 year old patient presents with chest pain, with symptoms suggestive of noncardiac chest pain.?vital signs stable. he is nontoxic appearing and in NAD. on exam, he is in no respiratory distress. his lungs are clear without adventitious breath sounds. rrr. no jvd, pitting edema, or calf tenderness. History without high risk features (not substernal, no exertional component, not relieved with rest).? Minimal CAD risk factors (including age). Exam without evidence of volume overload. EKG without signs of active ischemia. HEART score: 0. Given the timing of pain to ED presentation, plan to send single troponin to evaluate for NSTEMI. Differential diagnosis also includes anemia, electrolyte abnormality, costochondritis, msk pain, pneumonia, pleurisy, anxiety. Presentation not consistent with acute PE (PERC 0), pneumothorax, thoracic aortic dissection, cardiac effusion or tamponade, myocarditis, pericarditis. Plan: labs, troponin, EKG, CXR, pain control, reassessment Differential Diagnosis Differential Diagnoses: The differential diagnosis associated with the presentation includes as above. Admission/Observation not indicated. Lab Data [facility] Lab Attestation statement: I reviewed the patient's lab results. as above. 01/08/25 17:39 01/08/25 17:40 Labs: Lab Results 01/08/25 01/08/25 01/08/25 Range/Units 17:33 17:39 17:40 WBC 6.3 (4.8-10.8) X10*3/uL RBC 5.25 (4.60-5.80) X10*6/uL Hgb 16.2 (14.0-18.0) g/dl Hct 46.6 (42.0-52.0) % MCV 88.8 (80.0-98.0) fL MCH 30.9 (27.0-33.0) pg MCHC 34.8 (31.0-36.0) g/dl RDW 11.9 (11.0-16.0) % Plt Count 224 (160-400) X10*3/uL MPV 10.7 (9.4-12.4) fL Immature Gran % (Auto) 0.0 (0.0-0.4) % Neut % (Auto) 57.3 (45-73) % Lymph % (Auto) 30.6 (20-40) % [place] % (Auto) 10.6 (2-11) % Eos % (Auto) 1.0 (0-4) % Baso % (Auto) 0.5 (0-2) % Lymph # (Auto) 1.9 (1.2-4.9) X10*3/uL [place] # (Auto) 0.7 (0.1-1.2) X10*3/uL Eos # (Auto) 0.1 (0.0-0.4) X10*3/uL Baso # (Auto) 0.0 (0.0-0.2) X10*3/uL Abs Immat Gran (auto) 0.00 (0.00-0.03) X10*3/uL Absolute Neuts (auto) 3.6 (2.0-8.3) x10*3/uL Absolute Nucleated RBC 0.000 (0.0-0.012) X10*3/uL Nucleated RBC % (auto) 0.0 (0.0-0.2) /100WBC Sodium 140 (135-145) mmol/L Potassium 4.2 (3.3-5.1) mmol/L Chloride 106 (96-108) mmol/L Carbon Dioxide 26 (22-29) mmol/L Anion Gap 12 (12-20) BUN 13 (9-16) mg/dL Creatinine 0.81 (0.5-1.4) mg/dL Estim Creat Clear Calc 133.7 Estimated GFR > 60 Random Glucose 94 (60-115) mg/dL Calcium 9.5 (8.4-10.2) mg/dL Total Bilirubin 0.8 (0.0-1.0) mg/dL AST 20 (5-37) U/L ALT 22 (0-40) U/L Alkaline Phosphatase 74 (39-117) U/L Troponin I High Sens < 2.7 (<3.5-35.0) ng/L Total Protein 8.1 H (6.5-8.0) g/dL Albumin 4.7 (3.5-5.0) g/dL TSH 1.82 (0.32-4.0) uIU/mL Salicylates < 5.0 L (15-30) mg/dL Urine Opiates Screen Not Detected (Not Detect) Ur Buprenorphine Scrn Not Detected (Not Detect) ng/mL Ur Oxycodone Screen Not Detected (Not Detect) ng/mL Urine Methadone Screen Not Detected (Not Detect) ng/mL Urine Fentanyl Screen Not Detected (Not Detect) Acetaminophen < 3 (<30) mcg/mL Ur Barbiturates Screen Not Detected (Not Detect) Ur Phencyclidine Scrn Not Detected (Not Detect) Ur Amphetamines Screen Not Detected (Not Detect) U Benzodiazepines Scrn Not Detected (Not Detect) Urine Cocaine Screen Not Detected (Not Detect) U Marijuana (THC) Screen Not Detected (Not Detect) Ethyl Alcohol < 10 mg/dL Independent Interpretation I performed an independent interpretation of an: EKG and Plain X-Ray Interpretation: EKG showing normal sinus rhythm with a rate of 71 beats per minute, QT 362, QTC 393, no acute ischemic changes or ST elevations Chest xray without infiltrate or consolidation Radiology Impression Discussion of test interpretation with radiology: I have reviewed the radiologist's reading. Radiologist Impression: Procedure(s): XR chest 2V Accession Number(s): [id number] cc: Sherly Malone CHANGE ANALYST-BC; Isrrael Alfaro~ CLINICAL HISTORY: pain 2 view chest x-ray Comparison: None Findings: The lungs are clear. Normal size heart. No acute fracture. IMPRESSION: 1. No acute findings. This document has been electronically signed by: Shahla Condon MD on 01/08/2025 18:24:57 Prescription Management I considered prescription management with: Pain Medication Chronic Conditions Patient?s care impacted by: Other (anxiety, SI) Social Determinants Patient?s care significantly limited by Social Determinants of Health including: Other Social Determinant of Health Critical Care Time Critical Care Time Critical Care Time: No Discharge Plan Discharge Clinical Impression: Chest pain, Suicidal ideation Patient Disposition: Still a Patient Prescriptions: No Action No Known Home Meds Print Language: Romanian
[2025-01-08 17:45] LABS: MANUAL DIFF FLAG NO
[2025-01-08 17:47] LABS: Basophils Percent Auto 0.5 % (0-2); Eosinophils Absolute Auto 0.1 X10*3/uL (0.0-0.4); Hematocrit 46.6 % (42.0-52.0); Hemoglobin 16.2 g/dl (14.0-18.0); Lymphocytes Absolute Auto 1.9 X10*3/uL (1.2-4.9); Lymphocytes Percent Auto 30.6 % (20-40); Mean Corpuscular HGB Conc 34.8 g/dl (31.0-36.0); Mean Corpuscular Hemoglobin 30.9 pg (27.0-33.0); Mean Corpuscular Volume 88.8 fL (80.0-98.0); Mean Platelet Volume 10.7 fL (9.4-12.4); Monocytes Absolute Auto 0.7 X10*3/uL (0.1-1.2); Monocytes Percent Auto 10.6 % (2-11); Neutrophils Absolute Auto 3.6 x10*3/uL (2.0-8.3); Neutrophils Percent Auto 57.3 % (45-73); Platelet Count 224 X10*3/uL (160-400); Red Blood Count 5.25 X10*6/uL (4.60-5.80); Red Cell Distribution Width 11.9 % (11.0-16.0); White Blood Count 6.3 X10*3/uL (4.8-10.8)
[2025-01-08 17:58] LABS: Amphetamine Screen Urine Not Detected (Not Detect); Barbiturates, Urine Not Detected (Not Detect); Benzodiazepines Screen Urine Not Detected (Not Detect); Buprenorphine Scr Not Detected (Not Detect); Cannabinoid Screen Urine Not Detected (Not Detect); Cocaine Screen Urine Not Detected (Not Detect); Fentanyl, urine Not Detected (Not Detect); Methadone Screen, Urine Not Detected (Not Detect); Opiate Screen Urine Not Detected (Not Detect); Oxycodone Screen Urine Not Detected (Not Detect); Phencyclidine Screen Urine Not Detected (Not Detect)
[2025-01-08 18:02] LABS: Acetaminophen LAB < 3 mcg/mL (<30); Salicylate < 5.0 mg/dL (15-30)
[2025-01-08 18:04] LABS: Alanine Aminotransferase 22 U/L (0-40); Albumin Level 4.7 g/dL (3.5-5.0); Alkaline Phosphatase 74 U/L (39-117); Anion Gap 12 (12-20); Aspartate Amino Transferase 20 U/L (5-37); Bilirubin Total 0.8 mg/dL (0.0-1.0); Blood Urea Nitrogen 13 mg/dL (9-16); Calcium 9.5 mg/dL (8.4-10.2); Carbon Dioxide 26 mmol/L (22-29); Chloride 106 mmol/L (96-108); Creatinine Clr Calc Pharmacy 133.7; Estimated Glomerular Filt Rate > 60; Ethanol < 10 mg/dL; Glucose Random 94 mg/dL (60-115); Potassium 4.2 mmol/L (3.3-5.1); Sodium 140 mmol/L (135-145); Total Protein 8.1 g/dL (6.5-8.0)
[2025-01-08 18:10] LABS: Troponin-I High Sensitivity < 2.7 ng/L (<3.5-35.0)
[2025-01-08 18:23] LABS: TSH reflex Free T4 1.82 uIU/mL (0.32-4.0)
[2025-01-08] MEDS: Ibuprofen 600 MG TABLET PO (18:40)
[2025-01-08] MEDS: Melatonin 3 MG TABLET PO (21:40)
--- NOTE | 2025-01-08 22:54 | PC.NURSE ---
patient appears to be asleep
[2025-01-09 06:16] VITALS: BP 109/61; PULSE 60; RESP 16; TEMP 36.8; O2SAT 98
[2025-01-09 07:44] LABS: Appearance Urine Turbid; Color Urine Dark Yellow; Glucose Urine UA Negative (Negative); Leukocyte Esterase Urine Negative (Negative); Nitrite Urine Negative (Negative); Specific Gravity - Urine >= 1.030 (1.005-1.025); Urine Blood Negative (Negative); Urine Ketones 15 mg/dL (Negative); Urine Protein Trace mg/dL (Neg-Trace)
--- NOTE | 2025-01-09 10:23 | PC.NURSE ---
patient awake/alert, visiting with uncle who is at bedside, plan of care ongoing
--- NOTE | 2025-01-09 11:51 | PHA.MEDREC ---
Addendum entered by Jovanni Bills RPh 01/09/25 12:28: Reviewed by [facility] Original Note: Pharmacy Consult ? Medication Reconciliation Pharmacy reviewed med rec done by nursing. No Known Home Meds confirmed by nursing. I spoke with the patient to confirm and he confirmed he is not taking anything at this time and has no more of the Ibuprofen or Tylenol that was recently prescribed to him.
--- NOTE | 2025-01-09 13:05 | PC.NURSE ---
nurse to nurse report given.
[2025-01-09 13:40] VITALS: BP 117/74; PULSE 73; TEMP 36.7; O2SAT 98
[2025-01-09 15:57] VITALS: BMI 23.6
--- NOTE | 2025-01-09 16:01 | PC.ADMIT ---
Addendum entered by Kimberly Almendarez RN 01/09/25 16:32: Addendum: Jayme carries the diagnosis of Major Depression and has a history of 1 suicide attempt at age 20 by ingesting 8 motrin. He does not have a psychiatrist or a therapist and is on no meds. His PCP is Sherly Malone in [place] and was made aware of his admission. Original Note: Mr. Jersey Benjamin, who goes by Jayme, is a 24 year old male who was admitted on a Section 12 from the POD for suicidal ideation with an inability to contract for safety if discharged, depression and panic attacks. He arrived to the unit via wheelchair at 1:40pm. He is in room 515. Skin/ safety check performed and was unremarkable except for stretch escobedo on the front and back of his hips bilaterally and a full sleeve of tattoos. He signed a CV and is on safety checks q 15 minutes. 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 Jayme does not smoke tobacco. He reports drinking socially 1-2 drinks and his last drink was about 3 weeks ago. He has a history of ingesting cannabis edibles but due to drug screening had not used in more than 3 months. Jayme said he was raised without a father and has only sisters and has never known the love of a male figure and identifies this as his major Trauma. Jayme said he lost approximately 50lbs a couple of years ago and he did this by restricting and purging. He reports that he has not purged in approximately a year and a half and said he maintains his current weight with intermittent fasting , and eats just 1 meal per day. Patient education provided around proper nutrition and hydration however he expressed no interest in hearing about this. He declined the flu vaccine. He denies active SI but remains passively suicidal with no plan and said he can seek out staff if that changes. He also denies HI/ AVH. He reports a history of self harm (cutting) but has not done so in 4 years. Jayme said he has gone back and forth between here and [place], usually returning here to vacation or to work, but [place] where [place] mother and younger sister reside. [place]me used to stay with an older sister and more recently, lives with extended family ( 5 other adults). When asked about goals for discharge, Jayme asked if I was asking him if he saw a future for himself, and responded, I would say 50/50 .
--- NOTE | 2025-01-09 18:55 | PC.NURSE ---
At approximately 6:35pm the call plata for room 515 went off. This hand sign writer went to the room and patient was sitting at the desk drawing. He asked that I bring alcohol wipes and showed me his right forearm where he had scratched in several places with his fingernails. He said he was feeling anxious, said he felt like he was in senior care and couldn't get out. This hand sign writer helped clean the area which was similar to 3 lines of abrasions the thickness of fingernails. No stephen red blood noted. Area covered with 3 extra large bandaids. This hand sign writer Reflected back to the patient that he had said he had not cut in 4 years, and asked if this was accurate. He said that it was. He declined an invitation to talk about what he was feeling just prior to and while he was scratching, responding, If I don't get the response I want from you it won't be helpful. Headphone set #4 signed out for him. He was encouraged to seek staff out if he has the urge to scratch again before he does so if possible.
[2025-01-09 20:00] VITALS: BP 135/74; PULSE 70; RESP 18; TEMP 36.6; O2SAT 96
[2025-01-09] MEDS: hydrOXYzine HCL 25 MG TABLET PO (21:15)
[2025-01-09] MEDS: Acetaminophen 325 MG TABLET 650 MG PO (21:15)
[2025-01-09] MEDS: traZODone HCL 50 MG TABLET PO (21:16)
[2025-01-09] MEDS: OLANZapine 5 MG TABLET PO (21:16)
[2025-01-09] MEDS: LORazepam 0.5 MG TABLET PO (21:16)
[2025-01-10 07:54] VITALS: BP 115/56; PULSE 64; TEMP 36.8; O2SAT 95
[2025-01-10 08:48] LABS: Estimated Average Glucose 111 mg/dL; Hemoglobin A1c % 5.5 % (<6.0)
[2025-01-10 09:04] LABS: Cholesterol 216 mg/dL (<200); HDL Cholesterol 49 mg/dL (>40); LDL Cholesterol Calculated 153 mg/dL (<100); Magnesium 2.3 mg/dL (1.6-2.6); Triglycerides 70 mg/dL (<150)
[2025-01-10 09:22] LABS: Free T4 (Free Thyroxine) 1.13 ng/dL (0.71-1.85); Thyroid Stimulating Hormone 3.02 uIU/mL (0.32-4.0)
[2025-01-10 09:31] LABS: Folate 12.4 ng/mL (> or = 4.0); Vitamin B12 481 pg/mL (200-900)
--- NOTE | 2025-01-10 10:14 | HO.PSYADMNOT ---
HPI Date of Service: 01/10/25 Chief Complaint: chest pain Sources of Information: patient interviewed, chart reviewed and crisis/core team assessment reviewed HPI Narrative: Patient is a 24-year-old male with history of depression, anxiety with panic, possible eating disorder, who presents for overwhelming anxiety in the face of recent diagnosis of genital herpes. Patient reports that he has not been depressed since 2020 when his stepmother . Every few months he suffers from a panic attack but feels it is not that significant. This past August he was diagnosed with herpes although he denies having flare ups, he does have genital warts and also what he thinks his warts on his lips (Patient has an upcoming appointment next week). Patient lost his job a few weeks ago and with extra time on his hand he started ruminating on his new condition; patient started having panic attacks weekly. He says waking up daily seeing warts, knowing I have herpes, getting panics...pain in chest...not knowing what herpes will do to [him]...I had some suicidal thoughts... He denies any active SI and says had no plans or intention; patient is close to his little sister whom he mentions as a strong protective factor. Patient says medications make him too anxious and he does not want to be on any for anxiety or depression. Denies substance abuse; denies trauma history. Last night patient was emotionally agitated and superficially scratched his forearm with his fingernails. He remains adamant that he has no significant thoughts of self-harm and wants to be able to discharge in time for his appointment next week. pt seen at 4:00pm Past Psychiatric History: carries the diagnosis of Major Depression 2020 pt had 1 suicide attempt at age 20 by ingesting 8 motrin following of his beloved stepmother. He denies any depression since then History of superficial self-harm but not for several years He does not have a psychiatrist or a therapist and is on no meds Medical Evaluation Reviewed: Yes [facility] Medical History (Updated 01/10/25 @ 17:49 by Jasson Whipple MD) Panic attack Anxiety Appendicitis Surgical History History of appendectomy Family History: Deferred Social History: Jayme said he has gone back and forth between here and [place], usually returning here to vacation or to work, but [place] where his mother and younger sister reside. While in [place] Jayme used to stay with an older sister and more recently, lives with extended family ( 5 other adults). Substance History: Occasional alcohol use Trauma History: No overt trauma; growing up without a father felt traumatic to patient Diagnostics Vital Signs (24Hr): Vital Signs - 24 hr 01/09/25 13:40 01/09/25 20:00 01/10/25 07:54 Temperature 98.0 F 97.8 F 98.2 F Pulse Rate 73 70 64 Respiratory Rate 18 Blood Pressure 117/74 135/74 115/56 L Pulse Oximetry 98 96 95 Oxygen Delivery Method Room Air Room Air BMI result Body Mass Index 23.6 Labs 01/08/25 17:39 01/08/25 17:40 Labs: Laboratory Results - last 48 hr 01/08/25 01/08/25 01/08/25 17:33 17:39 17:40 WBC 6.3 RBC 5.25 Hgb 16.2 Hct 46.6 MCV 88.8 MCH 30.9 MCHC 34.8 RDW 11.9 Plt Count 224 MPV 10.7 Immature Gran % (Auto) 0.0 Neut % (Auto) 57.3 Lymph % (Auto) 30.6 [place] % (Auto) 10.6 Eos % (Auto) 1.0 Baso % (Auto) 0.5 Lymph # (Auto) 1.9 [place] # (Auto) 0.7 Eos # (Auto) 0.1 Baso # (Auto) 0.0 Abs Immat Gran (auto) 0.00 Absolute Neuts (auto) 3.6 Absolute Nucleated RBC 0.000 Nucleated RBC % (auto) 0.0 Sodium 140 Potassium 4.2 Chloride 106 Carbon Dioxide 26 Anion Gap 12 BUN 13 Creatinine 0.81 Estim Creat Clear Calc 133.7 Estimated GFR > 60 Random Glucose 94 Estimat Average Glucose Hemoglobin A1c % Calcium 9.5 Magnesium Total Bilirubin 0.8 AST 20 ALT 22 Alkaline Phosphatase 74 Troponin I High Sens < 2.7 Total Protein 8.1 H Albumin 4.7 Triglycerides Cholesterol LDL Cholesterol, Calc HDL Cholesterol Vitamin B12 Folate TSH 1.82 Free T4 Urine Color Dark Yellow Urine Appearance Turbid Urine pH 6.[address] [place] >= 1.030 H Urine Protein Trace Urine Glucose (UA) Negative Urine Ketones 15 Urine Blood Negative Urine Nitrite Negative Ur Leukocyte Esterase Negative Urine RBC Cancelled Urine WBC Cancelled Urine WBC Clumps Cancelled Ur Squamous Epith Cells Cancelled Ur Transition Epith Cell Cancelled Ur Renal Epithelial Cell Cancelled Calcium Oxalate Crystal Cancelled Leucine Crystals Cancelled Cystine Crystals Cancelled Tyrosine Crystals Cancelled Other Crystals Cancelled Urine Bacteria Cancelled Urine Parasites Cancelled Bilirubin Casts Cancelled Epithelial Casts Cancelled Fatty Casts Cancelled Hyaline Casts Cancelled Granular Casts Cancelled Waxy Casts Cancelled Broad Casts Cancelled RBC Casts Cancelled WBC Casts Cancelled Other Casts Cancelled Urine Trichomonas Cancelled Urine Yeast Cancelled Salicylates < 5.0 L Urine Opiates Screen Not Detected Ur Buprenorphine Scrn Not Detected Ur Oxycodone Screen Not Detected Urine Methadone Screen Not Detected Urine Fentanyl Screen Not Detected Acetaminophen < 3 Ur Barbiturates Screen Not Detected Ur Phencyclidine Scrn Not Detected Ur Amphetamines Screen Not Detected U Benzodiazepines Scrn Not Detected Urine Cocaine Screen Not Detected U Marijuana (THC) Screen Not Detected Ethyl Alcohol < 10 01/10/25 08:32 WBC RBC Hgb Hct MCV MCH MCHC RDW Plt Count MPV Immature Gran % (Auto) Neut % (Auto) Lymph % (Auto) [place] % (Auto) Eos % (Auto) Baso % (Auto) Lymph # (Auto) [place] # (Auto) Eos # (Auto) Baso # (Auto) Abs Immat Gran (auto) Absolute Neuts (auto) Absolute Nucleated RBC Nucleated RBC % (auto) Sodium Potassium Chloride Carbon Dioxide Anion Gap BUN Creatinine Estim Creat Clear Calc Estimated GFR Random Glucose Estimat Average Glucose 111 Hemoglobin A1c % 5.5 Calcium Magnesium 2.3 Total Bilirubin AST ALT Alkaline Phosphatase Troponin I High Sens Total Protein Albumin Triglycerides 70 Cholesterol 216 H LDL Cholesterol, Calc 153 H HDL Cholesterol 49 Vitamin B12 481 Folate 12.4 TSH 3.02 Free T4 1.13 Urine Color Urine Appearance Urine pH Ur Specific [place] Urine Protein Urine Glucose (UA) Urine Ketones Urine Blood Urine Nitrite Ur Leukocyte Esterase Urine RBC Urine WBC Urine WBC Clumps Ur Squamous Epith Cells Ur Transition Epith Cell Ur Renal Epithelial Cell Calcium Oxalate Crystal Leucine Crystals Cystine Crystals Tyrosine Crystals Other Crystals Urine Bacteria Urine Parasites Bilirubin Casts Epithelial Casts Fatty Casts Hyaline Casts Granular Casts Waxy Casts Broad Casts RBC Casts WBC Casts Other Casts Urine Trichomonas Urine Yeast Salicylates Urine Opiates Screen Ur Buprenorphine Scrn Ur Oxycodone Screen Urine Methadone Screen Urine Fentanyl Screen Acetaminophen Ur Barbiturates Screen Ur Phencyclidine Scrn Ur Amphetamines Screen U Benzodiazepines Scrn Urine Cocaine Screen U Marijuana (THC) Screen Ethyl Alcohol Meds/Allergies Meds Home Medications ?Medication ?Instructions ?Recorded ?Confirmed ?Type No Known Home Meds 01/24/24 01/08/25 History Allergies Allergies Allergy/AdvReac Type Severity Reaction Status Date / Time No Known Allergies Allergy Verified 01/08/25 17:18 [No Known Allergies*] Mental Status Exam Mental Status Exam Narrative: Pt is alert and oriented; behavior is cooperative, friendly and calm; patient is not in distress; dressed in hospital attire, tattoos arms, neck, with adequate hygiene and grooming; mood is described as okay... Anxious and affect congruent; eye contact appropriate; Speech is normal rate, volume and prosody and not pressured; no psychomotor agitation/retardation present; thought process is organized and goal directed; Thought content is on tx; otherwise pertinent to relevant topics and without any delusional content, paranoid ideations or grandiosity; denies any SI/HI. Denies AVH and there is no evidence of perceptual disturbance. Patients insight and judgment appear intact. Assessment & Plan Assessment & Plan (1) Human herpes simplex virus type 1 (HSV-1) DNA detected: Status: Acute Code(s): B00.9 - Herpesviral infection, unspecified (2) Anxiety: Status: Acute Code(s): F41.9 - Anxiety disorder, unspecified (3) Panic attack: Status: Acute Code(s): F41.0 - Panic disorder [episodic paroxysmal anxiety] Plan Patient is a 24-year-old male with history of depression, anxiety with panic, possible eating disorder, who presents for overwhelming anxiety in the face of recent diagnosis of genital herpes. Patient reports that he has not been depressed since 2020 when his stepmother . Every few months he suffers from a panic attack but feels it is not that significant. This past August he was diagnosed with herpes although he denies having flare ups, he does have genital warts and also what he thinks his warts on his lips (Patient has an upcoming appointment next week). Patient lost his job a few weeks ago and with extra time on his hand he started ruminating on his new condition; patient started having panic attacks weekly. He says waking up daily seeing warts, knowing I have herpes, getting panics...pain in chest...not knowing what herpes will do to [him]...I had some suicidal thoughts... He denies any active SI and says had no plans or intention; patient is close to his little sister whom he mentions as a strong protective factor. Patient says medications make him too anxious and he does not want to be on any for anxiety or depression. Denies substance abuse; denies trauma history. Last night patient was emotionally agitated and superficially scratched his forearm with his fingernails. He remains adamant that he has no significant thoughts of self-harm and wants to be able to discharge in time for his appointment next week. Formulation/clinical reasoning: Patient has history of depression but denies any depressive episodes for several years including now. He continues to have intermittent panic attacks which worsened recently however patient feels he can cope with this and does not want any medication. May have an eating disorder as pt told staff he lost approximately 50lbs a couple of years ago and he did this by restricting and purging; though this was not discussed further. Patient denies any active SI at all. Will monitor and if patient remains stable will proceed with discharge so he can make his appointments -denies herpes flare up and does not want medication at this time -reviewed labs which are grossly WNL (nonfasting lipids and patient said he ate before) and EKG with patient which is unremarkable Plan: CV Q 15 minute checks P.r.n. medication Patient educated on: diagnosis, medication risk/benefits and medical condition Informed Consent: understands Reason for continued inpatient stay Substantial Risk for: stable for discharge, rapid decompensation and med/psych decompensation Statement Statement: I have reviewed the history and physical and performed a pertinent examination on my patient. No changes have occurred unless specified. If the History and Physical was not performed prior to admission, the Hospitalist's service will be consulted for completing the admission physical. Time Spent With Patient Time: Total time managing care of this patient today ____ minutes.
[2025-01-10 20:00] VITALS: BP 104/59; PULSE 67; TEMP 36.9; O2SAT 99
[2025-01-11] MEDS: traZODone HCL 50 MG TABLET PO (03:09)
[2025-01-11 08:00] VITALS: BP 106/58; PULSE 64; RESP 16; TEMP 36.6; O2SAT 97
--- NOTE | 2025-01-11 08:01 | HO.PSYCHPN ---
Subjective Subjective Date of Service: 01/11/25 Reason For Visit: chest pain Subjective Notes: Conditional Voluntary Healthcare Proxy: No Guardianship: No Medical Problems Affecting Mental Status: No Interim History: 24 yo with anxiety, but not wanting medication- has superficial brusing scratches on left arm- he says from first day on unit- sib- when highly anxious- discussed if he could use other strategies and contact nursing if he felt like that again before doing anything to himself- continues to want to manage with no medicaitons- Says he tried antidepressant once and had poor effects. - Medication Compliance: No (not interested in med trial) Attending Groups: Intermittent Review of Systems Acute medical concerns: No Medical Review of Systems: unchanged Mental Status Exam Mental Status Exam Narrative: lying in bed under covers mid morning monday Patient Appearance: Appropriate Patient Orientation: Person, Place, Time and Situation Level of Consciousness: Awake Patient Behavior: Cooperative and Avoidant Mood Description: Anxious Affect Description: Apprehensive Patient Cognition Impaired: No Ability to Follow Directions: Fair Speech Pattern: Clear Hallucinations: None Delusions: Not Present Thought Process: Intact and Goal Oriented Thought Content: positive for Logical and positive for Hypochondriasis (somatic focus- self conscious about std) Depressive Symptoms: Increased Anxiety, Isolating-Friends/Family and Feelings of Guilt Judgement: Fair Diagnostics Vital Signs (24Hr): Vital Signs - 24 hr 01/10/25 20:00 Temperature 98.4 F Pulse Rate 67 Blood Pressure 104/59 L Pulse Oximetry 99 Oxygen Delivery Method Room Air BMI result Body Mass Index 23.6 Labs 01/08/25 17:39 01/08/25 17:40 Labs: Laboratory Results - last 48 hr 01/10/25 08:32 Estimat Average Glucose 111 Hemoglobin A1c % 5.5 Magnesium 2.3 Triglycerides 70 Cholesterol 216 H LDL Cholesterol, Calc 153 H HDL Cholesterol 49 Vitamin B12 481 Folate 12.4 TSH 3.02 Free T4 1.13 Medications Medications Current Medications Acetaminophen (Acetaminophen 325 Mg Tablet) 650 mg PO Q6H PRN PRN Reason: Headache/Pain, Scale 1-10 Last Admin: 01/09/25 21:15 Dose: 650 mg Al Hydroxide/Mg Hydroxide (Magnesium Hydrox/Alum Hydrox 30 Ml Oral.Susp) 30 ml PO Q6H PRN PRN Reason: Heartburn/Nausea Hydroxyzine HCl (Hydroxyzine Hcl 25 Mg Tablet) 25 mg PO Q6H PRN PRN Reason: mild anxiety Last Admin: 01/09/25 21:15 Dose: 25 mg Lorazepam (Lorazepam 0.5 Mg Tablet) 0.5 mg PO Q4H PRN PRN Reason: Anxiety Last Admin: 01/09/25 21:16 Dose: 0.5 mg Magnesium Hydroxide (Milk Of Magnesia 30 Ml Oral.Susp) 30 ml PO DAILY PRN PRN Reason: Constipation Nicotine Polacrilex (Nicotine Polacrilex 2 Mg Gum) 4 mg BUCCAL Q2H PRN PRN Reason: Nicotine Cravings Olanzapine (Olanzapine 5 Mg Tablet) 5 mg PO Q4H PRN PRN Reason: agitation Last Admin: 01/09/25 21:16 Dose: 5 mg Trazodone HCl (Trazodone Hcl 50 Mg Tablet) 50 mg PO BEDTIME MRX1 PRN PRN Reason: Insomnia Last Admin: 01/11/25 03:09 Dose: 50 mg Allergies Allergies Allergy/AdvReac Type Severity Reaction Status Date / Time No Known Allergies Allergy Verified 01/08/25 17:18 [No Known Allergies*] Assessment & Plan Assessment & Plan (1) Human herpes simplex virus type 1 (HSV-1) DNA detected: Status: Acute Code(s): B00.9 - Herpesviral infection, unspecified (2) Anxiety: Status: Acute Code(s): F41.9 - Anxiety disorder, unspecified (3) Panic attack: Status: Acute Code(s): F41.0 - Panic disorder [episodic paroxysmal anxiety] Plan Patient is a 24-year-old male with history of depression, anxiety with panic, possible eating disorder, who presents for overwhelming anxiety in the face of recent diagnosis of genital herpes. Patient reports that he has not been depressed since 2020 when his stepmother . Every few months he suffers from a panic attack but feels it is not that significant. This past August he was diagnosed with herpes although he denies having flare ups, he does have genital warts and also what he thinks his warts on his lips (Patient has an upcoming appointment next week). Patient lost his job a few weeks ago and with extra time on his hand he started ruminating on his new condition; patient started having panic attacks weekly. He says waking up daily seeing warts, knowing I have herpes, getting panics...pain in chest...not knowing what herpes will do to [him]...I had some suicidal thoughts... He denies any active SI and says had no plans or intention; patient is close to his little sister whom he mentions as a strong protective factor. Patient says medications make him too anxious and he does not want to be on any for anxiety or depression. Denies substance abuse; denies trauma history. Last night patient was emotionally agitated and superficially scratched his forearm with his fingernails. He remains adamant that he has no significant thoughts of self-harm and wants to be able to discharge in time for his appointment next week. Formulation/clinical reasoning: Patient has history of depression but denies any depressive episodes for several years including now. He continues to have intermittent panic attacks which worsened recently however patient feels he can cope with this and does not want any medication. May have an eating disorder as pt told staff he lost approximately 50lbs a couple of years ago and he did this by restricting and purging; though this was not discussed further. Patient denies any active SI at all. Will monitor and if patient remains stable will proceed with discharge so he can make his appointments -denies herpes flare up and does not want medication at this time -reviewed labs which are grossly WNL (nonfasting lipids and patient said he ate before) and EKG with patient which is unremarkable Plan: CV Q 15 minute checks P.r.n. medication 01/11 continues to want to manage without medications but unclear engagement in groups/mileu- sib from first day of admission- Patient educated on: medication risk/benefits, therapeutic strategies and medical condition Informed Consent: understands and further education needed Reason for continued inpatient stay Substantial Risk for: harm to self and rapid decompensation Time Spent With Patient Time: Total time managing care of this patient today ____ minutes.
[2025-01-11 20:00] VITALS: BP 111/57; PULSE 67; TEMP 36.8; O2SAT 98
[2025-01-12 08:00] VITALS: BP 104/61; PULSE 64; RESP 16; TEMP 36.9; O2SAT 97
--- NOTE | 2025-01-12 10:40 | HO.PSYCHPN ---
Subjective Subjective Date of Service: 01/12/25 Reason For Visit: chest pain Subjective Notes: Conditional Voluntary Healthcare Proxy: No Guardianship: No Medical Problems Affecting Mental Status: No Interim History: 24 yo reports main problem was not getting information about his medical disorder, and ruminating about it then getting panicky and having chest pain and thinking he was going to have an GA- now that he knows it is just anxiety he can manage- encouraged him to go to groups and not isolate to room- wants dc tomorrow as he has 01/14 appointment with provider to discuss std- no si, no sib further at this time Slept somewhat- Medication Compliance: No (not on medication) Side effects from medications: No Attending Groups: Intermittent Review of Systems Acute medical concerns: No other than herpes dx Medical Review of Systems: unchanged Mental Status Exam Mental Status Exam Patient Appearance: Well Grooomed and Appropriate Patient Orientation: Person, Place, Time and Situation Level of Consciousness: Awake Patient Behavior: Appropriate, Cooperative and Good Eye Contact Mood Description: Calm Affect Description: Appropriate Speech Pattern: Clear Hallucinations: None Delusions: Not Present Thought Content: positive for Intact and positive for Goal Oriented Judgement: Good Diagnostics Vital Signs (24Hr): Vital Signs - 24 hr 01/11/25 20:00 01/12/25 08:00 Temperature 98.2 F 98.4 F Pulse Rate 67 64 Respiratory Rate 16 Blood Pressure 111/57 L 104/61 Pulse Oximetry 98 97 Oxygen Delivery Method Room Air Room Air BMI result Body Mass Index 23.6 Labs 01/08/25 17:39 01/08/25 17:40 Medications Medications Current Medications Acetaminophen (Acetaminophen 325 Mg Tablet) 650 mg PO Q6H PRN PRN Reason: Headache/Pain, Scale 1-10 Last Admin: 01/09/25 21:15 Dose: 650 mg Al Hydroxide/Mg Hydroxide (Magnesium Hydrox/Alum Hydrox 30 Ml Oral.Susp) 30 ml PO Q6H PRN PRN Reason: Heartburn/Nausea Hydroxyzine HCl (Hydroxyzine Hcl 25 Mg Tablet) 25 mg PO Q6H PRN PRN Reason: mild anxiety Last Admin: 01/09/25 21:15 Dose: 25 mg Lorazepam (Lorazepam 0.5 Mg Tablet) 0.5 mg PO Q4H PRN PRN Reason: Anxiety Last Admin: 01/09/25 21:16 Dose: 0.5 mg Magnesium Hydroxide (Milk Of Magnesia 30 Ml Oral.Susp) 30 ml PO DAILY PRN PRN Reason: Constipation Nicotine Polacrilex (Nicotine Polacrilex 2 Mg Gum) 4 mg BUCCAL Q2H PRN PRN Reason: Nicotine Cravings Olanzapine (Olanzapine 5 Mg Tablet) 5 mg PO Q4H PRN PRN Reason: agitation Last Admin: 01/09/25 21:16 Dose: 5 mg Trazodone HCl (Trazodone Hcl 50 Mg Tablet) 50 mg PO BEDTIME MRX1 PRN PRN Reason: Insomnia Last Admin: 01/11/25 03:09 Dose: 50 mg Allergies Allergies Allergy/AdvReac Type Severity Reaction Status Date / Time No Known Allergies Allergy Verified 01/08/25 17:18 [No Known Allergies*] Assessment & Plan Assessment & Plan (1) Human herpes simplex virus type 1 (HSV-1) DNA detected: Status: Acute Code(s): B00.9 - Herpesviral infection, unspecified (2) Anxiety: Status: Acute Code(s): F41.9 - Anxiety disorder, unspecified (3) Panic attack: Status: Acute Code(s): F41.0 - Panic disorder [episodic paroxysmal anxiety] Plan Patient is a 24-year-old male with history of depression, anxiety with panic, possible eating disorder, who presents for overwhelming anxiety in the face of recent diagnosis of genital herpes. Patient reports that he has not been depressed since 2020 when his stepmother . Every few months he suffers from a panic attack but feels it is not that significant. This past August he was diagnosed with herpes although he denies having flare ups, he does have genital warts and also what he thinks his warts on his lips (Patient has an upcoming appointment next week). Patient lost his job a few weeks ago and with extra time on his hand he started ruminating on his new condition; patient started having panic attacks weekly. He says waking up daily seeing warts, knowing I have herpes, getting panics...pain in chest...not knowing what herpes will do to [him]...I had some suicidal thoughts... He denies any active SI and says had no plans or intention; patient is close to his little sister whom he mentions as a strong protective factor. Patient says medications make him too anxious and he does not want to be on any for anxiety or depression. Denies substance abuse; denies trauma history. Last night patient was emotionally agitated and superficially scratched his forearm with his fingernails. He remains adamant that he has no significant thoughts of self-harm and wants to be able to discharge in time for his appointment next week. Formulation/clinical reasoning: Patient has history of depression but denies any depressive episodes for several years including now. He continues to have intermittent panic attacks which worsened recently however patient feels he can cope with this and does not want any medication. May have an eating disorder as pt told staff he lost approximately 50lbs a couple of years ago and he did this by restricting and purging; though this was not discussed further. Patient denies any active SI at all. Will monitor and if patient remains stable will proceed with discharge so he can make his appointments -denies herpes flare up and does not want medication at this time -reviewed labs which are grossly WNL (nonfasting lipids and patient said he ate before) and EKG with patient which is unremarkable Plan: CV Q 15 minute checks P.r.n. medication 01/11 continues to want to manage without medications but unclear engagement in groups/mileu- sib from first day of admission- 01/12 feeling calmer and more future oriented looking for dc tomorrow to get to appointment 01/14 around the issues that made him so anxious- Patient educated on: medical condition and other (anxiety, coping) Informed Consent: understands Reason for continued inpatient stay Substantial Risk for: rapid decompensation Time Spent With Patient Time: Total time managing care of this patient today ____ minutes.
[2025-01-12 19:32] VITALS: BP 118/63; PULSE 65; RESP 16; TEMP 36.7; O2SAT 98
--- NOTE | 2025-01-12 19:58 | PC.NURSE ---
Jayme has been visible today. He attended group this am. When asked about it, he expressed 'it made me uncomfortable. So many people going through so much and talking all about it. Thats not my experience. This is not the place for me . He states he is anxious sometimes worse than others. He continues to refuse meds. I don't want to take anything, I don't want to create a habit , this nurse talked about nonhabit forming anxiety meds. He verbalized understanding, but still declines. He reports feeling very bored , if I get upset or anxious outside, I walk, I exercise, I watch the TV I want to watch. The anxiety goes away after a while. This afternoon he became upset, punched the wall in his bathroom. This nurse offered support and talked with him for while. He explained that he punched the wall to relieve stress. He has no intention to hit anyone. He denies hurting his hand and there is no visible injury. He was upset that his mom came to visit from [place] and she is going back to [place] monday. She only came here to see me and we only had a half an hour! This place is like penitentiary. No phone, I have to ask permission to shower, I have to ask for everything. I try to be out here but I'm not comfortable with anyone! Everyone is talking about drugs and suicide and everyone is old! and if I stay in my room, everyone thinks I'm depressed He continues to refuse medication. He agrees to come to staff if he feels like hitting something again.
--- NOTE | 2025-01-13 09:26 | PM.PSYDC ---
DS: Providers Provider Date of Service: 01/13/25 Date of admission: 01/09/25 12:37 Date of discharge: 01/13/25 Primary care physician: [facility] Attending physician on admission: Jasson Whipple Attending physician on discharge: Jasson Whipple DS: Diagnosis Discharge Diagnosis (1) Human herpes simplex virus type 1 (HSV-1) DNA detected: Status: Acute (2) Anxiety: Status: Acute (3) Panic attack: Status: Acute DS: Medications Discharge Medications Home Medications: Home Medications ?Medication ?Instructions ?Recorded ?Confirmed No Known Home Meds 01/24/24 01/08/25 Mental Status Exam Mental Status Exam Narrative: Pt is alert and oriented; behavior is cooperative, friendly and calm; patient is not in distress; dressed in hospital attire, tattoos arms, neck, with adequate hygiene and grooming; mood is described as good and affect congruent; eye contact appropriate; Speech is normal rate, volume and prosody and not pressured; no psychomotor agitation/retardation present; thought process is organized and goal directed; Thought content is on discharge; otherwise pertinent to relevant topics and without any delusional content, paranoid ideations or grandiosity; denies any SI/HI. Denies AVH and there is no evidence of perceptual disturbance. Patients insight and judgment are intact. Data Data Completed and Pending Completed studies during hospitalization [Text1]: 01/08/25 01/08/25 01/08/25 17:33 17:39 17:40 WBC 6.3 RBC 5.25 Hgb 16.2 Hct 46.6 MCV 88.8 MCH 30.9 MCHC 34.8 RDW 11.9 Plt Count 224 MPV 10.7 Immature Gran % (Auto) 0.0 Neut % (Auto) 57.3 Lymph % (Auto) 30.6 [place] % (Auto) 10.6 Eos % (Auto) 1.0 Baso % (Auto) 0.5 Lymph # (Auto) 1.9 [place] # (Auto) 0.7 Eos # (Auto) 0.1 Baso # (Auto) 0.0 Abs Immat Gran (auto) 0.00 Absolute Neuts (auto) 3.6 Absolute Nucleated RBC 0.000 Nucleated RBC % (auto) 0.0 Sodium 140 Potassium 4.2 Chloride 106 Carbon Dioxide 26 Anion Gap 12 BUN 13 Creatinine 0.81 Estim Creat Clear Calc 133.7 Estimated GFR > 60 Random Glucose 94 Estimat Average Glucose Hemoglobin A1c % Calcium 9.5 Magnesium Total Bilirubin 0.8 AST 20 ALT 22 Alkaline Phosphatase 74 Troponin I High Sens < 2.7 Total Protein 8.1 H Albumin 4.7 Triglycerides Cholesterol LDL Cholesterol, Calc HDL Cholesterol Vitamin B12 Folate TSH 1.82 Free T4 Urine Color Dark Yellow Urine Appearance Turbid Urine pH 6.0 Ur Specific [place] >= 1.030 H Urine Protein Trace Urine Glucose (UA) Negative Urine Ketones 15 Urine Blood Negative Urine Nitrite Negative Ur Leukocyte Esterase Negative Urine RBC Cancelled Urine WBC Cancelled Urine WBC Clumps Cancelled Ur Squamous Epith Cells Cancelled Ur Transition Epith Cell Cancelled Ur Renal Epithelial Cell Cancelled Calcium Oxalate Crystal Cancelled Leucine Crystals Cancelled Cystine Crystals Cancelled Tyrosine Crystals Cancelled Other Crystals Cancelled Urine Bacteria Cancelled Urine Parasites Cancelled Bilirubin Casts Cancelled Epithelial Casts Cancelled Fatty Casts Cancelled Hyaline Casts Cancelled Granular Casts Cancelled Waxy Casts Cancelled Broad Casts Cancelled RBC Casts Cancelled WBC Casts Cancelled Other Casts Cancelled Urine Trichomonas Cancelled Urine Yeast Cancelled Salicylates < 5.0 L Urine Opiates Screen Not Detected Ur Buprenorphine Scrn Not Detected Ur Oxycodone Screen Not Detected Urine Methadone Screen Not Detected Urine Fentanyl Screen Not Detected Acetaminophen < 3 Ur Barbiturates Screen Not Detected Ur Phencyclidine Scrn Not Detected Ur Amphetamines Screen Not Detected U Benzodiazepines Scrn Not Detected Urine Cocaine Screen Not Detected U Marijuana (THC) Screen Not Detected Ethyl Alcohol < 10 01/10/25 08:32 WBC RBC Hgb Hct MCV MCH MCHC RDW Plt Count MPV Immature Gran % (Auto) Neut % (Auto) Lymph % (Auto) [place] % (Auto) Eos % (Auto) Baso % (Auto) Lymph # (Auto) [place] # (Auto) Eos # (Auto) Baso # (Auto) Abs Immat Gran (auto) Absolute Neuts (auto) Absolute Nucleated RBC Nucleated RBC % (auto) Sodium Potassium Chloride Carbon Dioxide Anion Gap BUN Creatinine Estim Creat Clear Calc Estimated GFR Random Glucose Estimat Average Glucose 111 Hemoglobin A1c % 5.5 Calcium Magnesium 2.3 Total Bilirubin AST ALT Alkaline Phosphatase Troponin I High Sens Total Protein Albumin Triglycerides 70 Cholesterol 216 H LDL Cholesterol, Calc 153 H HDL Cholesterol 49 Vitamin B12 481 Folate 12.4 TSH 3.02 Free T4 1.13 Urine Color Urine Appearance Urine pH Ur Specific [place] Urine Protein Urine Glucose (UA) Urine Ketones Urine Blood Urine Nitrite Ur Leukocyte Esterase Urine RBC Urine WBC Urine WBC Clumps Ur Squamous Epith Cells Ur Transition Epith Cell Ur Renal Epithelial Cell Calcium Oxalate Crystal Leucine Crystals Cystine Crystals Tyrosine Crystals Other Crystals Urine Bacteria Urine Parasites Bilirubin Casts Epithelial Casts Fatty Casts Hyaline Casts Granular Casts Waxy Casts Broad Casts RBC Casts WBC Casts Other Casts Urine Trichomonas Urine Yeast Salicylates Urine Opiates Screen Ur Buprenorphine Scrn Ur Oxycodone Screen Urine Methadone Screen Urine Fentanyl Screen Acetaminophen Ur Barbiturates Screen Ur Phencyclidine Scrn Ur Amphetamines Screen U Benzodiazepines Scrn Urine Cocaine Screen U Marijuana (THC) Screen Ethyl Alcohol DS: Summary Hospital Course Hospital Course: HPI: Patient is a 24-year-old male with history of depression, anxiety with panic, possible eating disorder, who presents for overwhelming anxiety in the face of recent diagnosis of genital herpes. Patient reports that he has not been depressed since 2020 when his stepmother . Every few months he suffers from a panic attack but feels it is not that significant. This past August hers he was diagnosed with herpes although he denies having flare ups, he does have genital warts and also what he thinks his warts on his lips (Patient has an upcoming appointment next week). Patient lost his job a few weeks ago and with extra time on his hand he started ruminating on his new condition; patient started having panic attacks weekly. He says waking up daily seeing warts, knowing I have herpes, getting panics...pain in chest...not knowing what herpes will do to [him]...I had some suicidal thoughts... He denies any active SI and says had no plans or intention; patient is close to his little sister whom he mentions as a strong protective factor. Patient says medications make him too anxious and he does not want to be on any for anxiety or depression. Denies substance abuse; denies trauma history. Last night patient was emotionally agitated and superficially scratched his forearm with his fingernails. He remains adamant that he has no significant thoughts of self-harm and wants to be able to discharge in time for his appointment next week. Formulation/clinical reasoning: Patient has history of depression but denies any depressive episodes for several years including now. He continues to have intermittent panic attacks which worsened recently however patient feels he can cope with this and does not want any medication. May have an eating disorder as pt told staff he lost approximately 50lbs a couple of years ago and he did this by restricting and purging; though this was not discussed further. Patient denies any active SI at all. Will monitor and if patient remains stable will proceed with discharge so he can make his appointments -denies herpes flare up and does not want medication at this time -reviewed labs which are grossly WNL (nonfasting lipids and patient said he ate before) and EKG with patient which is unremarkable Hospital course: Patient remains struggle with anxiety however remained adamant he did not want medication and used coping tools instead. Regarding anxiety, he was able to understand that his intermittent chest pain was due to anxiety which decreased his worries. Patient remained disinterested in treatment of any kind, medications, discussions, groups and instead said he just was waiting for discharge. Patient did act out, putting a small hole in the wall in his room, saying he would continue to act in protest of not being discharged sooner. Otherwise patient remained with safe behaviors in in behavioral control; he remained organized in speech and behavior and denied any depression or SI or any other psychiatric illness. Patient was at baseline. He remained wanting discharge and eager to get to his outpatient appointment on Monday. He was not in imminent risk for harm to self or others and appropriate to return to the community. Request for discharge honored. Time spent discussing smoking cessation with patient: 3 to 10 minutes Status at Discharge Functional status at discharge: independent ambulation Overall status at discharge: patient is back to baseline Time Spent with Patient Time attestation: Total time managing care of this patient today _35__ minutes. Time spent: Greater than 30 minutes Specific discharge activities: Met with patient; discussed with team; charting Discharge Plan Discharge Anticipated Discharge Date/Time: 01/13/25 11:00 Patient Disposition: Home, Self-Care Discharge Diagnosis: Anxiety disorder, unspecified Referrals: Sherly Malone FNP-BC [Primary Care Provider] - 1 Week Discharge Medications: Continued No Known Home Meds Discharge Orders: Discharge Order (Routine); Ordered 01/13/25 Ordered By: Jasson Whipple Diet: Regular diet Activity on Discharge: As tolerated Stand Alone Forms: Patient Portal Discharge page Print Language: Surinamese Care Plan Goals: Maintain mood and safe behaviors Take medications as prescribed Practice coping skills Continue with outpatient providers and reach out to them as needed Health Concerns: Mood stability and behaviors HSV Plan of Treatment: Follow up with your PCP, psychiatric provider and other outpatient providers regarding above concerns Take medications as prescribed Assessment: Risk assessment at time of discharge:? Patient was interviewed prior to discharge and found to be fully oriented and without any SI or HI. Patient has improved insight and judgment and wants to continue treatment. Patient is not in imminent risk of harm to self or others and has a safety plan that includes presenting to the closest ER or calling 911 if feeling unsafe.? Patient has been observed closely by nursing and unit staff throughout admission; patient has not engaged in any behaviors that suggest dangerousness to self or others and has demonstrated appropriate behaviors and impulse control
== END 2025-01-13 10:55 | disposition home or self-care (01) | DRG 756 ==
LOC: HO.ED 19:39 → HO.PM5 01-09 12:49
PROVIDERS: Physician Assistant; Admitting Provider Clinical Nurse Specialist Psychiatric/Mental Health, Adult; Emergency Provider Emergency Medicine Emergency Medical Services; PCP Nurse Practitioner Family; Visit Provider Psychiatry & Neurology Psychiatry
DX: F41.0 Panic disorder [episodic paroxysmal anxiety] (principal); R45.851 Suicidal ideations; F64.9 Gender identity disorder, unspecified; B00.9 Herpesviral infection, unspecified
CPT/HCPCS: 36415; 71046; 80053; 80061; 80143; 80179; 80307; 81003; 82607; 82746; 83036; 83735; 84439; 84443; 84484; 85025; 93005; 99285; S9485

== ENCOUNTER → 2025-01-08 17:08 | Outpatient (BNV) | payer OTHER, SELFPAY | PROVIDERS: Emergency Provider Emergency Medicine Emergency Medical Services; PCP Nurse Practitioner Family; Visit Provider Internal Medicine Cardiovascular Disease | DX: R07.9 Chest pain, unspecified (principal) | CPT/HCPCS: 93010 ==

== ENCOUNTER → 2025-01-08 17:21 | Outpatient (BNV) | payer OTHER, SELFPAY | PROVIDERS: Emergency Provider Emergency Medicine Emergency Medical Services; PCP Nurse Practitioner Family; Visit Provider Nuclear Medicine | DX: R10.9 Unspecified abdominal pain (principal) | CPT/HCPCS: 71046 ==

== ENCOUNTER → 2025-01-09 12:37 | Outpatient (BNV) | payer OTHER, SELFPAY | PROVIDERS: Admitting Provider Clinical Nurse Specialist Psychiatric/Mental Health, Adult; Emergency Provider Emergency Medicine Emergency Medical Services; PCP Nurse Practitioner Family; Visit Provider Psychiatry & Neurology Psychiatry | DX: F41.9 Anxiety disorder, unspecified (principal); F41.0 Panic disorder [episodic paroxysmal anxiety]; B00.9 Herpesviral infection, unspecified | CPT/HCPCS: 90792 ==

== ENCOUNTER 2025-01-14 09:29 | Outpatient (AMB) | payer OTHER, SELFPAY ==
--- NOTE | 2025-01-14 09:36 | A.OFFVIS_ITS ---
Intake Visit Reasons: genital warts Intake Note: Patient is present for GENITAL WARTS Urology Medication:NONE Antibiotic Allergy:NONE Blood Thinner:NONE Data Entry Technician Required: No Allergies No Known Allergies [No Known Allergies*] Allergy (Verified 01/30/25 12:12) HPI Comments Details: [place] is a pleasant male. He is a patient of Dr. Deal. He is seen for the following urologic conditions - genital warts On physical examination Herpes not warts Acyclovir prescription provided [facility] Medical History (Updated 01/30/25 @ 15:01 by Sherly Malone, [facility]) Panic attack Anxiety Appendicitis Surgical History (Updated 01/21/25 @ 00:02 by Keya Stephenson) History of appendectomy Family History Maternal Grandmother Diabetes Hypertension Social History Household Members: Other Household Members Other:: adult cousin, Her 3 adult children, her . Housing: House Do you presently have visiting nurse or other home services: No 75 years or older and lives alone: No Alcohol intake: current Alcohol intake frequency: holidays/special occasions only Patient Tobacco Use Status: Never used Tobacco e-Cigarette/Vaping Use: Never Used Second Hand Smoke Exposure: No Substance Use Type: Marijuana service: No Sexual orientation: Lesbian/Barrera/Homosexual Gender identity: Unable to collect Cognitive needs: No Hearing needs: No Vision needs: No Review of Systems Const Denies chills and Denies fever(s) Card Reports no additional complaints and Denies syncope Resp Denies cough GI Denies abdominal pain and Denies heartburn Reports as per HPI and Denies change in libido Neuro Denies syncope Psych Denies change in libido Endo Denies change in libido Physical Exam Const General: cooperative, healthy appearing, comfortable and no acute distress Orientation/consciousness: patient oriented x3 HEENT Face and sinus: Yes normal facial exam Mouth: moist mucous membranes Neck Neck: Yes normal visual inspection, Yes full ROM and Yes trachea midline Chest Chest palpation & inspection: normal inspection of the chest Resp Effort & Inspection: normal respiratory effort, able to speak in complete sentences and no respiratory distress GI Inspection: Yes normal to inspection Back/Spine/Pelvis Cervical Spine: normal cervical lordosis Thoracic/Lumbar Spine: thoracic and lumbar spine normal to inspection Skin General skin exam: no rashes or lesions noted Neuro General: patient oriented x3, gait normal, tone normal and moves all extremities Extrem General: Yes normal to inspection and Yes capillary refill normal Assessment & Plan Assessment & Plan (1) Genital herpes: Code(s): A60.00 - Herpesviral infection of urogenital system, unspecified Category: Medical Plan Acyclovir Reassurance provided Patient Instructions: This note is constructed using voice recognition software. While every effort has been made to ensure accuracy agricultural specialist errors may have been included. Imaging studies, laboratory and physical exam results were discussed and reviewed in detail. No major barriers to patient understanding were identified. An opportunity to ask questions regarding the treatment plan was provided. All questions were answered. The patient expressed understanding and agreement with the above treatment plan. The patient is aware they should contact our office by phone for worsening of their current condition or the appearance of new urologic symptoms. Compliance is encouraged with any medications and followup testing that is ordered. It is a privilege to participate in the urologic care of your patient. If you have any questions or concerns regarding treatment for the above conditions, or other urologic issues, please do not hesitate to contact me. The office telephone contact is [phone]. Sincerely, Dr Juan Garcia MD, [facility] - Urology Compassionate Specialist Care for the Genitourinary System Coding Level of Care Code New Pt Level 3 (46262) Diagnoses Genital herpes A60.00
== END 2025-01-14 10:46 | disposition home or self-care (01) ==
LOC: HO.HUSH 09:29
PROVIDERS: PCP Nurse Practitioner Family; Visit Provider Urology
DX: A60.00 Herpesviral infection of urogenital system, unspecified (principal)
CPT/HCPCS: 99203

== ENCOUNTER → 2025-01-14 09:29 | Outpatient (BNVA) | payer OTHER, SELFPAY | PROVIDERS: PCP Nurse Practitioner Family; Visit Provider Urology | DX: A60.00 Herpesviral infection of urogenital system, unspecified (principal) | CPT/HCPCS: 99202 ==

== ENCOUNTER 2025-01-30 11:46 | Outpatient (AMB) | payer OTHER, SELFPAY ==
--- NOTE | 2025-01-30 11:48 | A.OFFPC_ITS ---
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: No Allergies No Known Allergies [No Known Allergies*] Allergy (Verified 01/30/25 12:12) Medication List - Last Reconciled 01/30/25 by NINFA Hamm No Known Home Meds Tobacco use date assessed: 01/30/25 Dental Screening Dental Screen Date: 01/30/25 Did you have a dental visit in the last 12 months?: Yes Did you have a dental problem in the last 6 months where you did not have access to dental care?: No Was dental information given to patient?: Patient has dentist HPI HPI Comments 2 History of Present Illness0 Details 24-year-old male with MDD, Gender Identi ty disorder (Wants to transition from Male and Female),HSV 1 Surgical history: appendectomy 2023 Reports no sig family hx Health Maintenance: Dentist- listed provide previously x 2 Declines vaccines as he is not sure if he got them in [place] Specialists: [facility] - referred but does not want to go. Here today for CPE Since last visit, had inpatient psych admissiona [facility] Declined meds and counseling Feels anxious r/t HSV Dx. Does not know how he will live w/ this Worried he will get it in his eyes though he has no sx Saw Uro was did not offer any specific treatments. He does not have any lesions at this time Has googled things and wants to know what vitamins he can take for his immune system Has pain in right chest wall when he touches the area; this has been present for months. [employer] told him he needs an Echo He has dizziness that comes and goes Will be relocating permanently to [place] March 04 and wants all of his health checked her the medical care in [place] is bad . Plan Reviewed Psych admission work up which included labs and CXR All were reassuring There is no need to do an Echo Recommend [facility] for STD prevention and educational resources Once again strongly recommended counseling but he declined. Refer to Optho for eval and tx Start Valtrex for HSV flares, edu on how to use Start Ibu 800 TID PRN to help w/ reproducible pain in R anterior chest wall. Good luck w/ relocation. Exam: awake alert NAD PERRLA EOMI Scleras nonicteric TM intact and clear bilat MMM - see below Pharynx clear Thyroid nontender Neck FROM, no adenopathy Reproducible pain over R anterior chest proximal to axilla; the skin is normal. RRR LS CTAB Abd soft, normoactive bs x 4 No edema BLE Pulses WNL Neuro exam benign Anxious, irritated, on phone most of the time; yet cooperative. Extra time spent caring for the patient today was 30 minutes. This includes time spent before the visit reviewing the chart, time spent during the visit, and time spent after the visit on documentation, reviewing laboratory results, diagnostic imaging, medications, performing a medically necessary evaluation, counseling on diagnoses, care coordination, ordering appropriate tests, ordering appropriate medications, review of tests performed by other providers, reporting test results with the patient, communication with other healthcare providers. [facility] Medical History (Updated 01/30/25 @ 15:01 by Sherly Malone [facility]) Anxiety Appendicitis Panic attack Surgical History (Updated 01/21/25 @ 00:02 by Keya Stephenson) History of appendectomy Family History Maternal Grandmother Diabetes Hypertension Social History Household Members: Other Household Members Other:: adult cousin, Her 3 adult children, her . Housing: House Do you presently have visiting nurse or other home services: No 75 years or older and lives alone: No Alcohol intake: current Alcohol intake frequency: holidays/special occasions only Patient Tobacco Use Status: Never used Tobacco e-Cigarette/Vaping Use: Never Used Second Hand Smoke Exposure: No Substance Use Type: Marijuana service: No Sexual orientation: Lesbian/Barrera/Homosexual Gender identity: Unable to collect Cognitive needs: No Hearing needs: No Vision needs: No Questionnaire PHQ-9 Over the last 2 weeks, how often have you been bothered by any of the following problems? 1. Little interest or pleasure in doing things: not at all 2. Feeling down, depressed, or hopeless: not at all 3. Trouble falling or staying asleep, or sleeping too much: not at all 4. Feeling tired or having little energy: not at all 5. Poor appetite or overeating: not at all 6. Feeling bad about yourself - or that you are a failure or have let yourself or your family down: not at all 7. Trouble concentrating on things, such as reading the newspaper or watching television: not at all 8. Moving or speaking so slowly that other people could have noticed. Or the opposite - being so fidgety or restless that you have been moving around a lot more than usual: not at all 9. Thoughts that you would be better off or of hurting yourself in some way: not at all Total score: 0 Depression Screening Interpretation: Negative Depression Screening Done: Yes 76255 - PHQ-9 Billing: Yes Source: Developed by Drs. Raghu Doyle, Kimberly Pacheco, Kei Castellanos and colleagues, with an educational yanet from [email or web address]. Thrive Questionnaire Date Thrive assessed: 01/30/25 I am a: Patient What is your living situation today?: I have a steady place to live Within the past 12 months, did the food you bought not last and you didn't have the money to get more?: Never true Within the past 12 months, did you worry whether your food would run out before you got money to buy more?: Never true Do you have trouble paying for medicines?: No Do you have trouble getting transportation to medical appointments?: No Do you have trouble paying your heating and electricity bill?: No Do you have trouble taking care of your child, family member or friend?: No Do you have trouble with day-to-day activities such as bathing, preparing meals, shopping, managing finances, etc.?: No Are you currently unemployed and looking for a job?: No Are you interested in more education?: No Please select the resources that you would like help with: None Currently or been in a relationship where the following occur: No concerns reported THRIVE Score: 0 AUDIT C Alcohol Use Questionnaire (AUDIT-C) 1. How often do you have a drink containing alcohol?: Never 2. How many drinks containing alcohol do you have on a typical day when you are drinking?: 1 or 2 3. How often do you have six or more drinks on one occasion?: Never Total Score: 0 Score Reviewed/Action Taken: Yes MANFRED-7 AMB Questionnaire MANFRED-7 Date MANFRED - 7 assessed: 01/30/25 Feeling nervous, anxious, or on edge: 0 = Not at all Not being able to stop or control worryin = Not at all Worrying too much about different things: 0 = Not at all Trouble relaxin = Not at all Being so restless that it is hard to sit still: 0 = Not at all Becoming easily annoyed or irritable: 0 = Not at all Feeling afraid as if something awful might happen: 0 = Not at all Total MANFRED-7 score (0-4 normal; 5-9 mild; 10-14 moderate; 15-21 severe): 0 Source: Developed by Drs. Raghu Doyle, Kimberly Pacheco, Kei Castellanos and colleagues, with an educational yanet from [email or web address]. MANFRED-7 Assessment Billing MANFRED-7 Assessment Tool: MANFRED-7 Assessment 36625 Physical exam (Primary Care) Vital Signs: Last Vital Signs Temp 97.6 F 01/30/25 11:52 Pulse 66 01/30/25 11:52 Resp 16 01/30/25 11:52 BP 98/67 01/30/25 11:52 Pulse Ox 98 01/30/25 11:52 Oxygen Delivery Method Room Air 01/30/25 11:52 BMI result Body Mass Index 24.6 Tobacco/Smoking Status: Tobacco use Status Tobacco use date assessed 01/30/25 01/30/25 11:53 Patient Tobacco Use Status Never used Tobacco 01/30/25 11:53 e-Cigarette/Vaping Use Never Used 01/30/25 11:53 PHQ-9: PHQ-9 Score PHQ-9: Total score 0 01/30/25 12:10 Depression Screening Interpretation: Negative Thrive Assessment: Date of Thrive Assessment Date Thrive assessed 01/30/25 01/30/25 11:53 Currently or been in a relationship where the following occur: No concerns reported Coding Level of Care Code Est Pt Level 4 (37809) Est Pt Prev Care 18-39y(17690) Diagnoses Encounter for general adult medical examination with abnormal findings Z00.01 Anxiety F41.9 Gender identity disorder, unspecified F64.9 Human herpes simplex virus type 1 (HSV-1) DNA detected B00.9 Mild episode of recurrent major depressive disorder F33.0 Major depression episode severity: mild Blurred vision, bilateral H53.8 Costochondral chest pain R07.89 Hospital discharge follow-up Z09 Additional Codes MANFRED-7 Assessment Billing - MANFRED-7 Assessment Tool: MANFRED-7 Assessment 16005 ([id number]) PHQ-9 - 53747 - PHQ-9 Billing: Yes ([id number]) Assessment & Plan Assessment & Plan (1) Encounter for general adult medical examination with abnormal findings: Code(s): Z00.01 - Encounter for general adult medical examination with abnormal findings (2) Anxiety: Code(s): F41.9 - Anxiety disorder, unspecified Category: Medical (3) Gender identity disorder, unspecified: Comment: Wishes to undergo transition from male to female. Referred to counseling but does not want to go . Referral to Psychiatry from there if appropriate. Then referral to endocrinology or the like to help with this. Code(s): F64.9 - Gender identity disorder, unspecified Category: Medical (4) Human herpes simplex virus type 1 (HSV-1) DNA detected: Code(s): B00.9 - Herpesviral infection, unspecified Category: Medical (5) MDD (major depressive disorder), recurrent episode: Comment: Not on meds Referred to counseling - does not want to go Code(s): F33.9 - Major depressive disorder, recurrent, unspecified Category: Medical Qualifiers: Major depression episode severity: mild Qualified Code(s): F33.0 - Major depressive disorder, recurrent, mild (6) Blurred vision, bilateral: Code(s): H53.8 - Other visual disturbances Category: Medical (7) Costochondral chest pain: Code(s): R07.89 - Other chest pain Category: Medical (8) Hospital discharge follow-up: Code(s): Z09 - Encounter for follow-up examination after completed treatment for conditions other than malignant neoplasm Plan . Orders: Referrals 2 Optometry Referral B00.9 - Herpesviral infection, unspecified, H53.8 - Other visual disturbances Medications: New 2 valacyclovir (Valtrex) 1,000 mg PO Q8H 30 tabs 1RF ibuprofen 800 mg PO Q8H PRN 30 tabs 0RF pain
[2025-01-30 11:52] VITALS: BP 98/67; PULSE 66; RESP 16; TEMP 36.4; O2SAT 98; BMI 24.6
== END 2025-01-30 12:32 | disposition home or self-care (01) ==
LOC: HO.HMCFM 11:47
PROVIDERS: PCP Nurse Practitioner Family; Visit Provider Nurse Practitioner Family
DX: Z00.01 Encounter for general adult medical examination with abnormal findings (principal); F41.9 Anxiety disorder, unspecified; F33.0 Major depressive disorder, recurrent, mild; F64.9 Gender identity disorder, unspecified; B00.9 Herpesviral infection, unspecified; H53.8 Other visual disturbances; R07.89 Other chest pain; Z09 Encounter for follow-up examination after completed treatment for conditions other than malignant neoplasm

== ENCOUNTER → 2025-01-30 11:46 | Outpatient (BNVA) | payer OTHER, SELFPAY | PROVIDERS: PCP Nurse Practitioner Family; Visit Provider Nurse Practitioner Family | DX: Z00.01 Encounter for general adult medical examination with abnormal findings (principal); F41.9 Anxiety disorder, unspecified; F64.9 Gender identity disorder, unspecified; B00.9 Herpesviral infection, unspecified; F33.0 Major depressive disorder, recurrent, mild; H53.8 Other visual disturbances; R07.89 Other chest pain | CPT/HCPCS: 96127; 99212; 99395 ==